=== PATIENT | female | born 1955 | race American Indian/Alaskan Native ===

== ENCOUNTER 2018-06-19 12:15 | Emergency (ER) | payer MEDICAID, OTHER ==
--- NOTE | 2018-06-19 12:29 | Emergency Department Report ---
Blank Doc - Documentation Documentation: 63 yo with a hx of stroke in January presents today s/p fall last night while walking to the bathroom, walks with cane no incident prior to fall, no loc witnessed by her sister who is here with her no f/u since January due to no medicaid yet Speaking clearly, mild abrasion to right eyebrow Main side ED evaluate
[2018-06-19] MEDS ORDERED: ULTRAM PO ONE (13:19)
--- NOTE | 2018-06-19 13:29 | Emergency Department Report ---
ED Fall HPI - General Chief Complaint: Fall Stated Complaint: RT LEG/ARM PAIN Time Seen by Provider: 06/19/18 12:23 Source: family Mode of arrival: Wheelchair - History of Present Illness Initial Comments: 63-year-old female with baseline right-sided weakness secondary to CVA presents to the ED following a trip and fall. The patient woke up in the middle of the night and attempted to ambulate to the bathroom with her cane and she fell down. Patient has abrasion into the right side of face, complaining of pain to the right hand. Patient also reports pain to right lower leg that has been ongoing for one month. PCP: none Complaint: fall -: Last night Fall From: standing Place Fall Occurred: home Symptoms Prior to Fall: none Location: head Location - Extremities: Right: Hand Severity: moderate Context: tripped/slipped - Related Data Previous Rx's Medication Instructions Recorded Last Taken Type AtorvaSTATin [Lipitor] 80 mg PO QHS #30 tablet 03/17/18 Unknown Rx Nicotine [Habitrol] 21 mg TD QDAY #30 patch 03/17/18 Unknown Rx metFORMIN [Glucophage] 500 mg PO BIDDIAB #30 tablet 03/17/18 Unknown Rx Amlodipine Besylate [Norvasc] 5 mg PO QDAY #30 tablet 06/19/18 Unknown Rx Methocarbamol [Robaxin-750] 750 mg PO Q6HR PRN #20 tablet 06/19/18 Unknown Rx Allergies Allergy/AdvReac Type Severity Reaction Status Date / Time No Known Allergies Allergy Verified 02/16/18 15:06 ED Review of Systems ROS: Stated complaint: RT LEG/ARM PAIN Other details as noted in HPI Comment: All other systems reviewed and negative Musculoskeletal: as per HPI ED Past Medical Hx - Past Medical History Previous Medical History?: Yes Hx Hypertension: Yes Hx CVA: Yes Hx Congestive Heart Failure: No Hx Diabetes: Yes Hx Deep Vein Thrombosis: No Hx Pulmonary Embolism: No Hx GERD: No Hx Liver Disease: No Hx Renal Disease: No Hx Sickle Cell Disease: No Hx Arthritis: No Hx Headaches / Migraines: No Hx Seizures: No Hx Kidney Stones: No Hx Psychiatric Treatment: No Hx Asthma: No Hx COPD: No Hx Tuberculosis: No Hx Dementia: No - Surgical History Past Surgical History?: No Hx Pacemaker: No - Social History Smoking Status: Former Smoker Substance Use Type: None - Medications Home Medications: Home Medications Medication Instructions Recorded Confirmed Last Taken Type AtorvaSTATin [Lipitor] 80 mg PO QHS #30 tablet 03/17/18 Unknown Rx Nicotine [Habitrol] 21 mg TD QDAY #30 patch 03/17/18 Unknown Rx metFORMIN [Glucophage] 500 mg PO BIDDIAB #30 tablet 03/17/18 Unknown Rx Amlodipine Besylate [Norvasc] 5 mg PO QDAY #30 tablet 06/19/18 Unknown Rx Methocarbamol [Robaxin-750] 750 mg PO Q6HR PRN #20 tablet 06/19/18 Unknown Rx ED Physical Exam - General Limitations: No Limitations General appearance: alert, in no apparent distress - Head Head exam: Present: other (abrasion to right face) - Eye Eye exam: Present: normal appearance - ENT ENT exam: Present: mucous membranes moist - Neck Neck exam: Present: normal inspection. Absent: tenderness - Respiratory Respiratory exam: Present: normal lung sounds bilaterally. Absent: respiratory distress - Cardiovascular Cardiovascular Exam: Present: regular rate, normal rhythm - GI/Abdominal GI/Abdominal exam: Present: soft. Absent: distended, tenderness - Extremities Exam Extremities exam: Present: other (no deformities noted; tenderness to right hand, right lower leg, no swelling noted) - Neurological Exam Neurological exam: Present: alert, other (baseline right-sided weakness) - Psychiatric Psychiatric exam: Present: normal affect, normal mood - Skin Skin exam: Present: warm, dry, intact, normal color ED Course Vital Signs 06/19/18 12:23 Temperature 97.9 F Pulse Rate 73 Respiratory 18 Rate Blood Pressure 180/102 O2 Sat by Pulse 96 Oximetry ED Medical Decision Making - Radiology Data Radiology results: report reviewed, image reviewed - Medical Decision Making - CT Head negative - XR hand negative - venous doppler negative - pt hypertensive, will start on Norvasc 5 mg - outpt follow-up given - return precautions given - Differential Diagnosis intracranial injury, fracture, sprain, DVT, neuropathy Critical care attestation.: If time is entered above; I have spent that time in minutes in the direct care of this critically ill patient, excluding procedure time. ED Disposition Clinical Impression: Head injury, acute, Sprain of right hand, Pain of right lower extremity, Hypertension Disposition: TO HOME OR SELFCARE Is pt being admited?: No Condition: Stable Instructions: Chronic Pain (ED), Minor Head Injury (ED), Hand Sprain (ED), Peripheral Neuropathy (ED), Hypertension (ED) Prescriptions: Amlodipine Besylate [Norvasc] 5 mg PO QDAY #30 tablet Methocarbamol [Robaxin-750] 750 mg PO Q6HR PRN #20 tablet PRN Reason: Spasms [facility] [Primary Care Provider[facility] - 3-5 Days OWEN EDEN MD [Staff Physician] - 3-5 Days [facility] [Outside] - 3-5 Days [facility] [Outside] - 3-5 Days Time of Disposition: 15:06
--- NOTE | 2018-06-19 14:02 | Cat Scan Report ---
PROCEDURE: CT HEAD/BRAIN WO CON TECHNIQUE: A noncontrast CT of the head was performed. HISTORY: Fall COMPARISON: None FINDINGS: There is an interval but nonacute left frontal parietal infarct. There is no acute intracranial hemorrhage. There is no brain edema, mass effect or midline shift. Ventricular size is appropriate for brain volume. There is no abnormal extra-axial fluid collections. There is no skull fracture seen. The visualized paranasal sinuses are clear. IMPRESSION: Interval development of encephalomalacia in the left frontoparietal region, consistent wi th interval infarct. There is no acute intracranial abnormality seen. This document is electronically signed by Toshia Rivera MD., June 19 2018 02:00:34 PM ET
--- NOTE | 2018-06-19 14:48 | Vascular Lab Report ---
PROCEDURE: VL VENOUS DUPLEX LE RT TECHNIQUE: Grayscale, color flow and spectral waveform images were obtained of right lower extremity . HISTORY: fall, pain COMPARISON: None FINDINGS: There is no deep venous thrombosis seen in the right lower extremity. Flow is demonstrated by color flow and spectral waveform imaging. There is appropriate wall compression and augmentation. There is also no DVT seen in visualized proximal left lower extremity. IMPRESSION: There is no evidence for DVT in right lower extremity. This document is electronically signed by Toshia Rivera MD., June 19 2018 02:46:18 PM ET
--- NOTE | 2018-06-19 14:59 | XRay Report ---
PROCEDURE: XR HAND 3+V RT TECHNIQUE: 3 views of the right hand. HISTORY: pain COMPARISON: None FINDINGS: There is no acute fracture seen. There is no dislocation seen. There is no focal osseous lesion identified. Bones are osteopenic. IMPRESSION: There is no acute abnormality identified. This document is electronically signed by oTshia Rivera MD., June 19 2018 02:57:19 PM ET
[2018-06-19] MEDS ORDERED: TORADOL ONE (15:04)
[2018-06-19] MEDS ORDERED: TORADOL IM ONE (15:05)
[2018-06-19 15:08] VITALS: BP 172/80
== END 2018-06-19 15:23 | disposition home or self-care (01) ==
LOC: ED 12:15
DX: S63.91XA Sprain of unspecified part of right wrist and hand, initial encounter (principal); S00.91XA Abrasion of unspecified part of head, initial encounter; M79.661 Pain in right lower leg; I10 Essential (primary) hypertension; E11.9 Type 2 diabetes mellitus without complications; Z87.891 Personal history of nicotine dependence; W01.198A Fall on same level from slipping, tripping and stumbling with subsequent striking against other object, initial encounter; Y93.89 Activity, other specified; Y92.091 Bathroom in other non-institutional residence as the place of occurrence of the external cause; Y99.8 Other external cause status
CPT/HCPCS: 70450; 73130; 82962; 93971; 96372; 99284; J1885

== ENCOUNTER 2018-07-29 10:00 | Outpatient (CLI) | payer MEDICAID ==
[2018-07-29 10:58] LABS: Hematocrit 44.1 % (30.3-42.9); Hemoglobin 14.8 gm/dl (10.1-14.3); Mean Corpuscular HGB Conc 34 % (30-34); Mean Corpuscular Volume 90 fl (79-97); Platelet Count 320 K/mm3 (140-440); Red Blood Count 4.89 M/mm3 (3.65-5.03); Red Cell Distribution Width 15.4 % (13.2-15.2)
[2018-07-29 11:02] LABS: Alanine Aminotransferase 21 units/L (7-56); Albumin 4.6 g/dL (3.9-5); BUN/Creatinine Ratio 15; Blood Urea Nitrogen 9 mg/dL (7-17); Chol/HDL Ratio 3.46 %; HDL Cholesterol 45 mg/dL (40-59); Hemolysis Index 11; LDL Cholesterol,Direct 110 mg/dL (50-130)
[2018-08-02 14:29] LABS: Vitamin D, 25-OH, D2 <4 ng/mL
== END 2018-07-29 10:01 | disposition home or self-care (01) ==
LOC: LAB 10:00
PROVIDERS: ATTEND Internal Medicine
DX: E11.9 Type 2 diabetes mellitus without complications (principal); E78.5 Hyperlipidemia, unspecified; I10 Essential (primary) hypertension; I69.30 Unspecified sequelae of cerebral infarction; E78.00 Pure hypercholesterolemia, unspecified
CPT/HCPCS: 36415; 80053; 80061; 82306; 82607; 83036; 84443; 85027

== ENCOUNTER 2018-10-20 15:06 | Outpatient (CLI) | payer MEDICAID ==
[2018-10-20 15:28] LABS: Bilirubin,Urine NEG (Negative); Blood,Urine SM (Negative); Color,Urine Yellow (Yellow); Mucus,Urine FEW /HPF; Protein,Urine <15 mg/dL mg/dL (Negative); Urobilinogen,Urine < 2.0 mg/dL (<2.0)
== END 2018-10-20 15:07 | disposition home or self-care (01) ==
LOC: LAB 15:06
PROVIDERS: ATTEND Internal Medicine
DX: N39.0 Urinary tract infection, site not specified (principal); E11.9 Type 2 diabetes mellitus without complications; E78.00 Pure hypercholesterolemia, unspecified; I10 Essential (primary) hypertension
CPT/HCPCS: 81001; 87086

== ENCOUNTER 2019-02-10 08:54 | Inpatient (IN) | payer MEDICAID, OTHER ==
[2019-02-10 09:59] LABS: Basophils # (Auto) 0.1 K/mm3 (0.0-0.1); Eosinophils # (Auto) 0.1 K/mm3 (0.0-0.4); Eosinophils % (Auto) 2.1 % (0.0-4.3); Hematocrit 39.3 % (30.3-42.9); Hemoglobin 13.5 gm/dl (10.1-14.3); Lymphocytes # (Auto) 2.3 K/mm3 (1.2-5.4); Lymphocytes % (Auto) 36.7 % (13.4-35.0); Mean Corpuscular HGB Conc 34 % (30-34); Mean Corpuscular Volume 92 fl (79-97); Monocytes # (Auto) 0.5 K/mm3 (0.0-0.8); Platelet Count 295 K/mm3 (140-440); Red Blood Count 4.28 M/mm3 (3.65-5.03); Red Cell Distribution Width 13.7 % (13.2-15.2)
[2019-02-10 10:08] LABS: INR 0.91 (0.87-1.13)
[2019-02-10 10:09] LABS: Partial Thromboplastin Time 25.1 Sec. (24.2-36.6); Thrombin Time 18.7 Sec. (15.1-19.6)
[2019-02-10 10:10] LABS: BUN/Creatinine Ratio 19; Blood Urea Nitrogen 13 mg/dL (7-17); Calcium 9.6 mg/dL (8.4-10.2); Hemolysis Index 5
--- NOTE | 2019-02-10 10:25 | Emergency Department Report ---
<JUAN CAAL - Last Filed: 02/10/19 13:05> ED Neuro Deficit HPI - General Chief Complaint: Neuro Symptoms/Deficit Stated Complaint: POSS STROKE SX Time Seen by Provider: 02/10/19 09:53 Source: family Mode of arrival: Wheelchair Limitations: Other - History of Present Illness Initial Comments: 63-year-old -Surinamese female patient with history of CVA, hypertension, diabetes, and right sided lasted hemiplegia with possible stroke/seizure last seizure occurring on Wednesday. Patient's is the historian. He states that on Wednesday as the patient was sitting, her eyes suddenly rolled into the back of her head and she unresponsive for about 15 seconds and clenched his hand very hard with her left hand. He states when she became conscious again she did not recall the event that had just occurred. Patient states he then called EMS but the patient refused to go to the hospital. He states since the event on Wed, the patient's memory has been even further impaired from her baseline. He states she can no longer remember her name or other people who she knew before Wednesday. Patient does have memory and speech deficits at baseline. Patient's denies any previous history of seizures or recent head injuries/falls. The patient denies any headache, shortness of breath, chest pain -: Sudden - Related Data Home Medications: Previous Rx's Medication Instructions Recorded Last Taken Type AtorvaSTATin [Lipitor] 80 mg PO QHS #30 tablet 03/17/18 Unknown Rx Nicotine [Habitrol] 21 mg TD QDAY #30 patch 03/17/18 Unknown Rx metFORMIN [Glucophage] 500 mg PO BIDDIAB #30 tablet 03/17/18 Unknown Rx Amlodipine Besylate [Norvasc] 5 mg PO QDAY #30 tablet 06/19/18 Unknown Rx Methocarbamol [Robaxin-750] 750 mg PO Q6HR PRN #20 tablet 06/19/18 Unknown Rx Allergies/Adverse Reactions: Allergies Allergy/AdvReac Type Severity Reaction Status Date / Time No Known Allergies Allergy Verified 02/10/19 08:55 ED Review of Systems Comment: patient appears to be an unreliable historian Respiratory: denies: shortness of breath Cardiovascular: denies: chest pain Skin: denies: rash Neurological: denies: headache ED Past Medical Hx - Past Medical History Hx Hypertension: Yes Hx CVA: Yes Hx Congestive Heart Failure: No Hx Diabetes: Yes Hx Deep Vein Thrombosis: No Hx Pulmonary Embolism: No Hx GERD: No Hx Liver Disease: No Hx Renal Disease: No Hx Sickle Cell Disease: No Hx Arthritis: No Hx Headaches / Migraines: No Hx Seizures: No Hx Kidney Stones: No Hx Psychiatric Treatment: No Hx Asthma: No Hx COPD: No Hx Tuberculosis: No Hx Dementia: No - Surgical History Hx Pacemaker: No - Social History Smoking Status: Former Smoker Substance Use Type: None - Medications Home Medications: Home Medications Medication Instructions Recorded Confirmed Last Taken Type AtorvaSTATin [Lipitor] 80 mg PO QHS #30 tablet 03/17/18 Unknown Rx Nicotine [Habitrol] 21 mg TD QDAY #30 patch 03/17/18 Unknown Rx metFORMIN [Glucophage] 500 mg PO BIDDIAB #30 tablet 03/17/18 Unknown Rx Amlodipine Besylate [Norvasc] 5 mg PO QDAY #30 tablet 06/19/18 Unknown Rx Methocarbamol [Robaxin-750] 750 mg PO Q6HR PRN #20 tablet 06/19/18 Unknown Rx ED Neuro Physical Exam - General Limitations: Other General appearance: alert, in no apparent distress Suspected Stroke: No - Head Head exam: Present: atraumatic, normocephalic - Eye Eye exam: Present: normal appearance, PERRL. Absent: scleral icterus - ENT ENT exam: Present: normal orophraynx - Neck Neck exam: Present: normal inspection. Absent: tenderness, lymphadenopathy - Respiratory Respiratory exam: Present: normal lung sounds bilaterally. Absent: respiratory distress, chest wall tenderness - Cardiovascular Cardiovascular Exam: Present: regular rate, normal rhythm, normal heart sounds - GI/Abdominal GI/Abdominal exam: Present: soft, normal bowel sounds. Absent: distended, tenderness, guarding, rebound, rigid - Rectal Rectal exam: Present: deferred - Extremities Exam Extremities exam: Present: other. Absent: tenderness, pedal edema, joint swelling - Neurological Exam Neurological exam: Present: alert, CN II-XII intact, other (normal strength noted bilaterally in lower extremities and in left upper extremity. Permanent r ight upper extremity neuro deficit noted. Patient able to follow commands without difficulty. Patient is oriented to person, place, or time). Absent: oriented X3 - Psychiatric Psychiatric exam: Present: normal affect - Skin Skin exam: Present: warm, dry, intact, normal color. Absent: rash - Lab Data Result diagrams: 11/22/19 09:30 02/10/19 09:30 - Radiology Data Radiology results: report reviewed NONENHANCED CT SCAN OF THE HEAD: INDICATION / CLINICAL INFORMATION: 63 years Female; neuro deficits <6hrs or sx present upon awakening. TECHNIQUE: Routine CT head without contrast. All CT scans at this location are performed using CT dose reduction for ALARA by means of automated exposure control. COMPARISON: CT scan of the head from 06/19/2018 FINDINGS: BRAIN / INTRACRANIAL CONTENTS: No acute hemorrhage midline shift or hydrocephalus. No acute/subacute territorial infarction Encephalomalacia is seen involving left posterior frontal and parietal lobes and to a lesser degree left superior frontal gyrus with compensatory enlargement of left atrium of the left lateral ventricle. Wallerian degeneration is seen along the left corticospinal tract. No significant white matter abnormality. Mild cortical involution is seen. CT findings remain unchanged. CRANIOCERVICAL JUNCTION: No significant abnormality. ORBITS: No significant abnormality of visualized orbits. SINUSES / MASTOIDS: No significant abnormality of the visualized paranasal sinuses or mastoid air cells. ADDITIONAL FINDINGS: None. IMPRESSION: CT findings remain unchanged I do not see an acute territorial infarction or acute parenchymal lesion. CT scan was interpreted attendance 10:16 AM. Discussed findings with the ER physician. - Medical Decision Making 63-year-old -[place] female patient here today with suspected TIA/seizure occurring Wednesday. Patient has history of stroke with permanent right-sided deficits in speech and memory deficits. Is not oriented to person, place, or time. states she knows his name, but no longer knows her own name or other people that she knew previously before Wednesday. No known exam and patient able to follow commands. Labs are without acute findings. CT head shows no new changes. Ammonia level is normal. Patient to be admitted for f urther workup and evaluation of altered mental status. Vitals are stable ED Disposition Clinical Impression: CVA (cerebral vascular accident) Altered mental status Qualifiers: Altered mental status type: disorientation Qualified Code(s): R41.0 - Disorientation, unspecified Disposition: - OP ADMIT IP TO THIS HOSP Is pt being admited?: Yes Condition: Stable <TOM DUQUE - Last Filed: 02/10/19 13:26> ED Review of Systems ROS: Stated complaint: POSS STROKE SX Other details as noted in HPI ED Course Vital Signs 02/10/19 09:03 Temperature 98.2 F Pulse Rate 75 Respiratory 18 Rate Blood Pressure 149/94 O2 Sat by Pulse 100 Oximetry - Lab Data Result diagrams: 02/10/19 09:30 02/10/19 09:30 Lab Results 02/10/19 02/10/19 02/10/19 Range/Units 09:30 09:30 09:30 WBC 6.2 (4.5-11.0) K/mm3 RBC 4.28 (3.65-5.03) M/mm3 Hgb 13.5 (10.1-14.3) gm/dl Hct 39.3 (30.3-42.9) % MCV 92 (79-97) fl MCH 31 (28-32) pg MCHC 34 (30-34) % RDW 13.7 (13.2-15.2) % Plt Count 295 (140-440) K/mm3 Lymph % (Auto) 36.7 H (13.4-35.0) % [place] % (Auto) 8.0 H (0.0-7.3) % Eos % (Auto) 2.1 (0.0-4.3) % Baso % (Auto) 1.0 (0.0-1.8) % Lymph # 2.3 (1.2-5.4) K/mm3 [place] # 0.5 (0.0-0.8) K/mm3 Eos # 0.1 (0.0-0.4) K/mm3 Baso # 0.1 (0.0-0.1) K/mm3 Seg Neutrophils % 52.2 (40.0-70.0) % Seg Neutrophils # 3.2 (1.8-7.7) K/mm3 PT 12.2 (12.2-14.9) Sec. INR 0.91 (0.87-1.13) APTT 25.1 (24.2-36.6) Sec. Thrombin Time 18.7 (15.1-19.6) Sec. Sodium 141 (137-145) mmol/L Potassium 3.6 (3.6-5.0) mmol/L Chloride 103.9 (98-107) mmol/L Carbon Dioxide 22 (22-30) mmol/L Anion Gap 19 mmol/L BUN 13 (7-17) mg/dL Creatinine 0.7 (0.7-1.2) mg/dL Estimated GFR > 60 ml/min BUN/Creatinine Ratio 19 % Glucose 116 H (65-100) mg/dL Calcium 9.6 (8.4-10.2) mg/dL Magnesium (1.7-2.3) mg/dL Ammonia (25-60) umol/L Troponin T < 0.010 (0.00-0.029) ng/mL 02/10/19 02/10/19 Range/Units 09:30 10:52 WBC (4.5-11.0) K/mm3 RBC (3.65-5.03) M/mm3 Hgb (10.1-14.3) gm/dl Hct (30.3-42.9) % MCV (79-97) fl MCH (28-32) pg MCHC (30-34) % RDW (13.2-15.2) % Plt Count (140-440) K/mm3 Lymph % (Auto) (13.4-35.0) % [place] % (Auto) (0.0-7.3) % Eos % (Auto) (0.0-4.3) % Baso % (Auto) (0.0-1.8) % Lymph # (1.2-5.4) K/mm3 [place] # (0.0-0.8) K/mm3 Eos # (0.0-0.4) K/mm3 Baso # (0.0-0.1) K/mm3 Seg Neutrophils % (40.0-70.0) % Seg Neutrophils # (1.8-7.7) K/mm3 PT (12.2-14.9) Sec. INR (0.87-1.13) APTT (24.2-36.6) Sec. Thrombin Time (15.1-19.6) Sec. Sodium (137-145) mmol/L Potassium (3.6-5.0) mmol/L Chloride (98-107) mmol/L Carbon Dioxide (22-30) mmol/L Anion Gap mmol/L BUN (7-17) mg/dL Creatinine (0.7-1.2) mg/dL Estimated GFR ml/min BUN/Creatinine Ratio % Glucose (65-100) mg/dL Calcium (8.4-10.2) mg/dL Magnesium 2.00 (1.7-2.3) mg/dL Ammonia 30.0 (25-60) umol/L Troponin T (0.00-0.029) ng/mL - Medical Decision Making I evaluated Miss Owens. I spoke extensively with and family member at the bedside. Differential diagnosis includes seizure with post ictal state versus acute CVA versus intracranial mass. will need further treatment and evaluation on inpatient service. Critical care attestation.: If time is entered above; I have spent that time in minutes in the direct care of this critically ill patient, excluding procedure time. ED Disposition Is pt being admited?: Yes Does the pt Need Aspirin: No
--- NOTE | 2019-02-10 11:22 | Cat Scan Report ---
NONENHANCED CT SCAN OF THE HEAD: INDICATION / CLINICAL INFORMATION: 63 years Female; neuro deficits <6hrs or sx present upon awakening. TECHNIQUE: Routine CT head without contrast. All CT scans at this location are performed using CT dos e reduction for ALARA by means of automated exposure control. COMPARISON: CT scan of the head from 06/19/2018 FINDINGS: BRAIN / INTRACRANIAL CONTENTS: No acute hemorrhage midline shift or hydrocephalus. No acute/subacute territorial infarction Encephal omalacia is seen involving left posterior frontal and parietal lobes and to a lesser degree left supe rior frontal gyrus with compensatory enlargement of left atrium of the left lateral ventricle. Blancas janie degeneration is seen along the left corticospinal tract. No significant white matter abnormality. Mild cortical involution is seen. CT findings remain unchanged. CRANIOCERVICAL JUNCTION: No significant abnormality. ORBITS: No significant abnormality of visualized orbits. SINUSES / MASTOIDS: No significant abnormality of the visualized paranasal sinuses or mastoid air alexsander ls. ADDITIONAL FINDINGS: None. IMPRESSION: CT findings remain unchanged I do not see an acute territorial infarction or acute parenchymal lesion. CT scan was interpreted attendance 10:16 AM. Discussed findings with the ER physician. Signer Name: Alpesh Mas MD Signed: 02/10/2019 11:18 AM Workstation Name: [employer]
--- NOTE | 2019-02-10 12:44 | XRay Report ---
CHEST 1 VIEW 02/10/2019 12:13 PM INDICATION / CLINICAL INFORMATION: r/o infection. COMPARISON: None available. FINDINGS: SUPPORT DEVICES: None. HEART / MEDIASTINUM: No significant abnormality. LUNGS / PLEURA: No significant pulmonary or pleural abnormality. No pneumothorax. ADDITIONAL FINDINGS: No significant additional findings. IMPRESSION: 1. No acute findings. Signer Name: Giovanny Salguero MD Signed: 02/10/2019 12:39 PM Workstation Name: [id number]
[2019-02-10 14:43] LABS: Bacteria,Urine 1+ /HPF (Negative); Bilirubin,Urine NEG (Negative); Blood,Urine NEG (Negative); Color,Urine Yellow (Yellow); Mucus,Urine FEW /HPF; Protein,Urine <15 mg/dL mg/dL (Negative); Urobilinogen,Urine < 2.0 mg/dL (<2.0)
[2019-02-10] MEDS ORDERED: ACETAMINOPHEN W/CODEINE 300-30 MG TAB PO PRN (22:05)
--- NOTE | 2019-02-10 22:05 | History and Physical Report ---
History of Present Illness Date of examination: 02/10/19 Date of admission: 02/10/19 12:33 Chief complaint: Acute seizures 5 days ago Acute loss of Memory History of present illness: 63-year-old -[place] female patient with history of CVA, hypertension, diabetes, and right sided lasted hemiplegia with possible stroke/seizure last seizure occurring on Wednesday. Patient's is the historian. He states that on Wednesday as the patient was sitting, her eyes suddenly rolled into the back of her head and she unresponsive for about 15 seconds and clenched his hand very hard with her left hand. He states when she became conscious again she did not recall the event that had just occurred. Patient states he then called EMS but the patient refused to go to the hospital. He states since the event on Wednesday, the patient's memory has been even further impaired from her baseline. He states she can no longer remember her name or other people who she knew before Wednesday. Patient does have memory and speech deficits at baseline. Patient's denies any previous history of seizures or recent head injuries/falls. The patient denies any headache, shortness of breath, chest pain. New onset of seizures and more memory loss. - Past Medical History Hypertension: Yes CVA: Yes Diabetes: Yes Surgical History No Social History Smoking Status: Former Smoker Substance Use Type: None Family History Htn Medications Home Medications: Home Medications Medication Instructions Recorded Confirmed Last Taken Type AtorvaSTATin [Lipitor] 80 mg PO QHS #30 tablet 03/17/18 Unknown Rx Nicotine [Habitrol] 21 mg TD QDAY #30 patch 03/17/18 Unknown Rx metFORMIN [Glucophage] 500 mg PO BIDDIAB #30 tablet 03/17/18 Unknown Rx Amlodipine Besylate [Norvasc] 5 mg PO QDAY #30 tablet 06/19/18 Unknown Rx Methocarbamol [Robaxin-750] 750 mg PO Q6HR PRN #20 tablet 06/19/18 Unknown Rx Review of Systems Comment: patient appears to be an unreliable historian Respiratory: denies: shortness of breath Cardiovascular: denies: chest pain Skin: denies: rash Neurological: denies: headache Medications and Allergies Allergies Allergy/AdvReac Type Severity Reaction Status Date / Time No Known Allergies Allergy Verified 02/10/19 08:55 Home Medications Medication Instructions Recorded Confirmed Last Taken Type AtorvaSTATin [Lipitor] 80 mg PO QHS #30 tablet 03/17/18 02/10/19 Unknown Rx metFORMIN [Glucophage] 500 mg PO BIDDIAB #30 tablet 03/17/18 02/10/19 Unknown Rx Amlodipine Besylate [Norvasc] 5 mg PO QDAY #30 tablet 06/19/18 02/10/19 Unknown Rx Methocarbamol [Robaxin-750] 750 mg PO Q6HR PRN #20 tablet 06/19/18 02/10/19 Unknown Rx Acetaminophen/Codeine [Tylenol 1 tab PO TID PRN 02/10/19 02/10/19 Unknown History /Codeine # 3 tab] Aspirin [Aspirin BABY CHEW TAB] 81 mg PO QDAY 02/10/19 02/10/19 Unknown History Losartan [Cozaar] 50 mg PO QDAY 02/10/19 02/10/19 Unknown History Exam - Constitutional Vitals: Temp Pulse Resp BP Pulse Ox 97.9 F 84 18 108/70 97 02/10/19 19:35 02/10/19 20:25 02/10/19 19:35 02/10/19 19:35 02/10/19 19:35 General appearance: Present: no acute distress, well-nourished - EENT Eyes: Present: PERRL ENT: hearing intact, clear oral mucosa - Neck Neck: Present: supple, normal ROM - Respiratory Respiratory effort: normal Respiratory: bilateral: CTA - Cardiovascular Heart rate: 78 Rhythm: regular Heart Sounds: Present: S1 & S2. Absent: rub, click - Extremities Extremities: no ischemia, pulses intact, pulses symmetrical, No edema Peripheral Pulses: within normal limits - Abdominal General gastrointestinal: Present: soft, non-tender, non-distended, normal bowel sounds Female genitourinary: Present: normal - Rectal Rectal Exam: deferred - Integumentary Integumentary: Present: clear, warm, dry - Musculoskeletal Musculoskeletal: right sided weakness - Psychiatric Psychiatric: appropriate mood/affect, intact judgment & insight - Neurologic Neurologic: CNII-XII intact, moves all extremities - Allied Health Allied health notes reviewed: nursing, case management Results - Labs CBC & Chem 7: 02/10/19 09:30 02/10/19 09:30 Labs: Laboratory Last Values WBC 6.2 K/mm3 (4.5-11.0) 02/10/19 09:30 RBC 4.28 M/mm3 (3.65-5.03) 02/10/19 09:30 Hgb 13.5 gm/dl (10.1-14.3) 02/10/19 09:30 Hct 39.3 % (30.3-42.9) 02/10/19 09:30 MCV 92 fl (79-97) 02/10/19 09:30 MCH 31 pg (28-32) 02/10/19 09:30 MCHC 34 % (30-34) 02/10/19 09:30 RDW 13.7 % (13.2-15.2) 02/10/19 09:30 Plt Count 295 K/mm3 (140-440) 02/10/19 09:30 Lymph % (Auto) 36.7 % (13.4-35.0) H 02/10/19 09:30 [place] % (Auto) 8.0 % (0.0-7.3) H 02/10/19 09:30 Eos % (Auto) 2.1 % (0.0-4.3) 02/10/19 09:30 Baso % (Auto) 1.0 % (0.0-1.8) 02/10/19 09:30 Lymph # 2.3 K/mm3 (1.2-5.4) 02/10/19 09:30 [place] # 0.5 K/mm3 (0.0-0.8) 02/10/19 09:30 Eos # 0.1 K/mm3 (0.0-0.4) 02/10/19 09:30 Baso # 0.1 K/mm3 (0.0-0.1) 02/10/19 09:30 Seg Neutrophils % 52.2 % (40.0-70.0) 02/10/19 09:30 Seg Neutrophils # 3.2 K/mm3 (1.8-7.7) 02/10/19 09:30 PT 12.2 Sec. (12.2-14.9) 02/10/19 09:30 INR 0.91 (0.87-1.13) 02/10/19 09:30 APTT 25.1 Sec. (24.2-36.6) 02/10/19 09:30 Thrombin Time 18.7 Sec. (15.1-19.6) 02/10/19 09:30 Sodium 141 mmol/L (137-145) 02/10/19 09:30 Potassium 3.6 mmol/L (3.6-5.0) 02/10/19 09:30 Chloride 103.9 mmol/L (98-107) 02/10/19 09:30 Carbon Dioxide 22 mmol/L (22-30) 02/10/19 09:30 Anion Gap 19 mmol/L 02/10/19 09:30 BUN 13 mg/dL (7-17) 02/10/19 09:30 Creatinine 0.7 mg/dL (0.7-1.2) 02/10/19 09:30 Estimated GFR > 60 ml/min 02/10/19 09:30 BUN/Creatinine Ratio 19 % 02/10/19 09:30 Glucose 116 mg/dL (65-100) H 02/10/19 09:30 POC Glucose 133 (70-105) H 02/10/19 20:54 Calcium 9.6 mg/dL (8.4-10.2) 02/10/19 09:30 Magnesium 2.00 mg/dL (1.7-2.3) 02/10/19 09:30 Ammonia 30.0 umol/L (25-60) 02/10/19 10:52 Troponin T < 0.010 ng/mL (0.00-0.029) 02/10/19 09:30 Urine Color Yellow (Yellow) 02/10/19 12:59 Urine Turbidity Slightly-cloudy (Clear) 02/10/19 12:59 Urine pH 5.0 (5.0-7.0) 02/10/19 12:59 Ur Specific [place] 1.016 (1.003-1.030) 02/10/19 12:59 Urine Protein <15 mg/dl mg/dL (Negative) 02/10/19 12:59 Urine Glucose (UA) Neg mg/dL (Negative) 02/10/19 12:59 Urine Ketones Neg mg/dL (Negative) 02/10/19 12:59 Urine Blood Neg (Negative) 02/10/19 12:59 Urine Nitrite Neg (Negative) 02/10/19 12:59 Urine Bilirubin Neg (Negative) 02/10/19 12:59 Urine Urobilinogen < 2.0 mg/dL (<2.0) 02/10/19 12:59 Ur Leukocyte Esterase Neg (Negative) 02/10/19 12:59 Urine WBC (Auto) 2.0 /HPF (0.0-6.0) 02/10/19 12:59 Urine RBC (Auto) 1.0 /HPF (0.0-6.0) 02/10/19 12:59 U Epithel Cells (Auto) 7.0 /HPF (0-13.0) 02/10/19 12:59 Urine Bacteria (Auto) 1+ /HPF (Negative) 02/10/19 12:59 Urine Mucus Few /HPF 02/10/19 12:59 - Imaging and Cardiology EKG: report reviewed (Sinus Bradycardia 52/min) CT Scan - head: report reviewed (CT Head--NAF) Assessment and Plan Advance Directives: Yes (Full code) VTE prophylaxis?: Chemical Plan of care discussed with patient/family: Yes - Patient Problems (1) CVA (cerebral vascular accident) Current Visit: Yes Status: Acute Qualifiers: CVA mechanism: unspecified Qualified Code(s): I63.9 - Cerebral infarction, unspecified Plan to address problem: Possible Acute frontal stroke Because of loss of memory Stroke protocol Neuro consult (2) T2DM (type 2 diabetes mellitus) Current Visit: Yes Status: Chronic Qualifiers: Diabetes mellitus terminal manager insulin use: with terminal manager use Plan to address problem: Cont Home meds and coverage (3) HTN (hypertension) Current Visit: Yes Status: Chronic Qualifiers: Hypertension type: essential hypertension Qualified Code(s): I10 - Essential (primary) hypertension Plan to address problem: Cont antihypertensives (4) New onset seizure Current Visit: Yes Status: Acute Plan to address problem: on IV Keppra (5) DVT prophylaxis Current Visit: Yes Status: Acute Plan to address problem: On Heparin and GI prophylaxis
[2019-02-11 07:36] LABS: Chol/HDL Ratio 4.11 %
[2019-02-11] MEDS: INSULIN LISPRO 100 UNIT/ML SUB-Q SCH ×4 (09:32→22:27)
[2019-02-11] MEDS: LOSARTAN 50 MG TAB PO SCH (09:33)
[2019-02-11] MEDS: metFORMIN 500 MG TAB PO SCH ×2 (09:33→18:11)
[2019-02-11] MEDS: levETIRAcetam 750 MG in DEXTROSE 5% IN WATER 100 ML IV SCH ×3 (09:33→22:32)
[2019-02-11] MEDS: HEPARIN 5,000 UNIT/1 ML VIAL SUB-Q SCH ×2 (09:34→22:28)
[2019-02-11] MEDS: amLODIPine 5 MG TAB PO SCH (09:34)
[2019-02-11] MEDS: ASPIRIN 81 MG TAB CHEW PO SCH (09:34)
--- NOTE | 2019-02-11 12:34 | Vascular Lab Report ---
"DUPLEX DOPPLER ULTRASOUND CAROTID, BILATERAL INDICATION: stroke. COMPARISON: CTA neck from 02/08/2018. FINDINGS: RIGHT CAROTID: Mild calcified plaques are seen along the common carotid artery. CCA velocity: 53.7 cm/sec. ICA peak systolic velocity: 49.4 cm/sec. ICA/CCA PSV Ratio: 0.9. Right Vertebral Artery: Antegrade flow. LEFT CAROTID: Mild to slight plaques are seen along the common carotid artery. CCA velocity: 40.9 cm/sec. ICA peak systolic velocity: 59.3 cm/sec. ICA/CCA PSV Ratio: 1.4. Left Vertebral Artery: Antegrade flow. IMPRESSION: 1. Right Internal Carotid Artery: Less than 50% diameter stenosis. 2. Left Internal Carotid Artery: Less than 50% diameter stenosis. Velocity criteria are extrapolated from diameter data as defined by the Society of Radiologists in Ul trasound Consensus Conference, Radiology 2003; 229;340-346. Degree of || ICA PSV || Plaque || ICA/CCA Stenosis (%) || (cm/sec) || estimate (%) || PSV Ratio - Normal...............<125..............None.................<2.0 - <50....................<125..............<50....................<2.0 - 50-69................125-230.........>50....................2.0-4.0 - >70 but <100....>230..............>50....................>4.0 - Near...................High, low, .....visible................variable occlusion or none - Total...................None.............visible;................N/A occlusion no lumen Signer Name: Ryan Bingham MD Signed: 02/11/2019 12:29 PM Workstation Name: [email or web address]"
--- NOTE | 2019-02-11 12:47 | Progress Note ---
Assessment and Plan (1) CVA (cerebral vascular accident) Current Visit: Yes Status: Acute Qualifiers: CVA mechanism: unspecified Qualified Code(s): I63.9 - Cerebral infarction, unspecified Plan to address problem: Possible Acute frontal stroke Because of loss of memory Stroke protocol Neuro consult (2) T2DM (type 2 diabetes mellitus) Current Visit: Yes Status: Chronic Qualifiers: Diabetes mellitus long chain beamer insulin use: with long chain beamer use Plan to address problem: Cont Home meds and coverage (3) HTN (hypertension) Current Visit: Yes Status: Chronic Qualifiers: Hypertension type: essential hypertension Qualified Code(s): I10 - Essential (primary) hypertension Plan to address problem: Cont antihypertensives (4) New onset seizure Current Visit: Yes Status: Acute Plan to address problem: on IV Keppra (5) DVT prophylaxis Current Visit: Yes Status: Acute Plan to address problem: On Heparin and GI prophylaxis Subjective Date of service: 02/11/19 Objective - Constitutional Vitals: Vital Signs - 12hr 02/11/19 02/11/19 02/11/19 04:41 08:16 09:33 Temperature 98.0 F 97.4 F L Pulse Rate 59 L 60 64 Respiratory 18 18 Rate Blood Pressure 133/88 142/92 142/92 O2 Sat by Pulse 100 99 Oximetry 02/11/19 09:34 Temperature Pulse Rate 64 Respiratory Rate Blood Pressure 142/92 O2 Sat by Pulse Oximetry - Labs CBC & Chem 7: 02/10/19 09:30 02/10/19 09:30 Labs: Abnormal lab results 02/10/19 02/11/19 02/11/19 Range/Units 20:54 04:52 04:52 POC Glucose 133 H (70-105) Hemoglobin A1c 6.2 H (4-6) % HDL Cholesterol 35 L (40-59) mg/dL
--- NOTE | 2019-02-11 16:58 | Magnetic Resonance Report ---
MRI BRAIN WITHOUT CONTRAST INDICATION / CLINICAL INFORMATION: stroke. . Right-sided weakness. TECHNIQUE: Multiplanar, multisequence MR images of the brain were obtained. COMPARISON: Head CT 02/10/2019 and 06/19/2018. FINDINGS: BRAIN / INTRACRANIAL CONTENTS: A large area of encephalomalacia is observed involving much of the lef t frontal and parietal lobe secondary to remote left MCA infarction which occurred between 02/16/2018 and 06/19/2018. There is evidence of cortical laminar necrosis in the region of the infarction. A mor e remote small deep infarction is observed in the region of the head of the caudate nucleus on the ri ght. This was first identified on head CT dated 02/16/2018. No more recent areas of ischemia are identified. Diffusion weighted scans are negative with no indica tion of acute or subacute infarction. There is no mass effect. No evidence of recent intracranial hem orrhage is observed. Note is made of what appear to be dilated perivascular spaces in the right temporal lobe. Similar fin dings are seen in a bilateral gangliocapsular distribution. There is mild ex vacuo dilatation of the posterior body and atria of the left lateral ventricle. Dila tation of the cortical sulci of the left frontal and parietal operculum is observed. The brainstem an d cerebellum have an unremarkable appearance. CRANIOCERVICAL JUNCTION: No abnormalities are identified at the craniocervical junction. VASCULAR FLOW-VOIDS: Normal flow-voids are present within the major intracranial vessels. ORBITS: The orbits have an unremarkable appearance. SINUSES / MASTOIDS: There is no indication of inflammatory disease in the paranasal sinuses or mastoi d air cells. ADDITIONAL FINDINGS: None. IMPRESSION: 1. Evidence of remote left MCA infarction and remote small deep infarction in the right head of cauda te nucleus. 2. No acute intracranial abnormalities are identified. Signer Name: Bong Pérez MD Signed: 02/11/2019 4:54 PM Workstation Name: [email or web address]
[2019-02-12] MEDS: INSULIN LISPRO 100 UNIT/ML SUB-Q SCH ×2 (08:15→12:20)
[2019-02-12] MEDS: metFORMIN 500 MG TAB PO SCH (09:34)
[2019-02-12] MEDS: ASPIRIN 81 MG TAB CHEW PO SCH (09:34)
[2019-02-12] MEDS: amLODIPine 5 MG TAB PO SCH (09:34)
[2019-02-12] MEDS: LOSARTAN 50 MG TAB PO SCH (09:35)
[2019-02-12] MEDS: HEPARIN 5,000 UNIT/1 ML VIAL SUB-Q SCH (09:36)
[2019-02-12] MEDS: levETIRAcetam 750 MG in DEXTROSE 5% IN WATER 100 ML IV SCH (10:22)
[2019-02-12 12:35] VITALS: BP 122/77
--- NOTE | 2019-02-12 13:57 | Discharge Summary ---
Providers - Providers Date of Admission: 02/10/19 12:33 Date of discharge: 02/12/19 Attending physician: ABHIJIT GUERRERO 02/10/19 22:07 Consult to Physician [CONS] Routine Comment: Consulting Provider: DEMETRI HYMAN Physician Instructions: Reason For Exam: CVA 02/10/19 22:09 Occupational Therapy Evaluate and Treat [CONS] Routine Comment: Reason For Exam: Neuro deficits Physical Therapy Evaluation and Treat [CONS] Routine Comment: Reason For Exam: Neuro deficits Primary care physician: RESIDENTIAL FRAMING CARPENTER Hospitalization Condition: Stable Hospital course: Discharge diagnosis: /TIA - MRI negative for acute stroke /H/o CVA (cerebral vascular accident) with right sided hameparesis / T2DM (type 2 diabetes mellitus) -Cont Home meds and coverage / HTN (hypertension), Cont antihypertensives / New onset seizure, placed on Keppra, EEG and neurology f/u outpt / DVT prophylaxis, Placed On Heparin Disposition: DC/TX-06 HOME UNDER HOME HL[facility] Time spent for discharge: 34 minutes Core Measure Documentation - Palliative Care Palliative Care/ Comfort Measures: Not Applicable - Core Measures Any of the following diagnoses?: stroke - Stroke Discharge Requirements Statin for LDL = or >70 mg/dl on DC: Yes Anticoag for atrial fib/atrial flutter: Not Applicable Antithrombotic for ischemic stroke: Yes Exam - Constitutional Vitals: Temp Pulse Resp BP Pulse Ox 99.2 F 61 18 122/77 99 02/12/19 12:34 02/12/19 12:34 02/12/19 12:34 02/12/19 12:34 02/12/19 12:34 General appearance: Present: no acute distress, well-nourished - EENT Eyes: Present: PERRL ENT: hearing intact, clear oral mucosa - Neck Neck: Present: supple, normal ROM - Respiratory Respiratory effort: normal Respiratory: bilateral: CTA - Cardiovascular Heart Sounds: Present: S1 & S2. Absent: rub, click - Extremities Extremities: pulses symmetrical, No edema Peripheral Pulses: within normal limits - Abdominal General gastrointestinal: Present: soft, non-tender, non-distended, normal bowel sounds - Integumentary Integumentary: Present: clear, warm, dry - Musculoskeletal Musculoskeletal: right sided weakness - Psychiatric Psychiatric: appropriate mood/affect, intact judgment & insight - Neurologic Neurologic: CNII-XII intact, no gait normal Plan Activity: fall precautions, other Weight Bearing Status: Non-Weight Bearing Diet: low fat, low salt, diabetic Special Instructions: record daily BP diary, record blood sugar diary Additional Instructions: need EEG and outpt neurology f/u in one to two weeks Follow up with: PRIMARY CARE, [Primary Care Provider] - 7 Days DEMTERI HYMAN MD [Staff Physician] - 7 Days MEGHAN BARRIGA MD [Staff Physician] - 7 Days Prescriptions: levETIRAcetam [Keppra TAB] 750 mg PO BID #60 tablet
--- NOTE | 2019-02-13 22:18 | Emergency Department Report ---
- Assessment Assessment Interval: Baseline - Level of Consciousness 1a. Level of Consciousness: alert/keenly responsive - LOC Questions 1b. LOC Questions: answers no questions correctly - LOC Command 1c. LOC Commands: performs 1 task correctly - Best Gaze 2. Best Gaze: normal - Visual 3. Visual: no visual loss - Facial Palsy 4. Facial Palsy: minor paralysis - Motor Arm 5a. Motor Arm Left: some gravity effort 5b. Motor Arm Right: some gravity effort - Motor Leg 6a. Motor Leg Left: some gravity effort 6b. Motor Leg Right: some gravity effort - Limb Ataxia 7. Limb Ataxia: absent - Sensory 8. Sensory: mild/moderate sensory loss - Best Language 9. Best Language: mild/moderate aphasia - Dysarthria 10. Dysarthria: mild/moderate dysarthria - Extinction and Inattention 11. Extinction/Inattention: visual/tactile inattention - Scoring Total Score: 16 Stroke Severity: Moderate to Severe Stroke
== END 2019-02-12 15:42 | disposition home health service (06) | DRG 69 ==
LOC: ED 08:54 → 4A 12:33
PROVIDERS: ADMIT Internal Medicine; ATTEND Internal Medicine
DX: G45.9 Transient cerebral ischemic attack, unspecified (principal); I69.351 Hemiplegia and hemiparesis following cerebral infarction affecting right dominant side; E11.9 Type 2 diabetes mellitus without complications; I10 Essential (primary) hypertension; R56.9 Unspecified convulsions; Z82.49 Family history of ischemic heart disease and other diseases of the circulatory system; Z79.899 Other long term (current) drug therapy
CPT/HCPCS: 36415; 70450; 70551; 71045; 80048; 80061; 81001; 82140; 82962; 83036; 83735; 84484; 85025; 85610; 85670; 85730; 93005; 93010; 93306; 93880; G0378; A9270-GY; J1644; J1953

== ENCOUNTER 2019-04-06 09:47 | Outpatient (CLI) | payer MEDICAID ==
[2019-04-06 13:20] LABS: Bilirubin,Urine NEG (Negative); Blood,Urine SM (Negative); Color,Urine Yellow (Yellow); Mucus,Urine FEW /HPF; Protein,Urine <15 mg/dL mg/dL (Negative); Urobilinogen,Urine < 2.0 mg/dL (<2.0)
[2019-04-06 13:55] LABS: Chol/HDL Ratio 3.18 %
== END 2019-04-06 09:48 | disposition home or self-care (01) ==
LOC: LAB 09:47
PROVIDERS: ATTEND Internal Medicine
DX: E11.9 Type 2 diabetes mellitus without complications (principal); E78.5 Hyperlipidemia, unspecified; N39.0 Urinary tract infection, site not specified
CPT/HCPCS: 36415; 80061; 81001; 83036; 87086

== ENCOUNTER 2019-04-18 12:18 | Outpatient (CLI) | payer MEDICAID ==
--- NOTE | 2019-04-18 13:40 | Mammography Report ---
BILATERAL DIGITAL SCREENING MAMMOGRAM WITH CAD INDICATION: Routine screening mammography. TECHNIQUE: Digital bilateral 2D mammography was obtained in the craniocaudal and mediolateral obliq ue projections. This examination was interpreted with the benefit of Computer-Aided Detection soniai s. COMPARISON: 05/01/2014, 01/20/2012, 02/28/2010. FINDINGS: Breast Density: The breasts are heterogeneously dense, which may obscure small masses. No suspicious mass, microcalcifications, or architectural distortion. IMPRESSION: No evidence of breast malignancy. Recommend routine screening mammogram in one year. BI-RADS Category 1: Negative. No mammographic evidence of malignancy. Recommend routine screening m ammography in one year. A "normal" or negative report should not discourage follow up or biopsy of a clinically significant f inding. A written summary of these findings will be mailed to the patient. The patient will be entered into a mammography reporting system which will generate a reminder letter for the patient's next appointmen t at the appropriate interval. The [employer] recommends yearly mammograms starting at age 40 and continuing as l darlene as a woman is in good health. Breast MRI is recommended for women with an approximate 20-25% or greater lifetime risk of breast cancer, including women with a strong family history of breast or ova zoey cancer or who have been treated for Hodgkin's disease. View Signer Name: Timothy Hernandez MD Signed: 04/18/2019 1:35 PM Workstation Name: [id number]
== END 2019-04-18 12:19 | disposition home or self-care (01) ==
LOC: MAMMO 12:18
PROVIDERS: ATTEND Internal Medicine
DX: Z12.31 Encounter for screening mammogram for malignant neoplasm of breast (principal)
CPT/HCPCS: 77067

== ENCOUNTER 2020-05-08 10:21 | Outpatient (CLI) | payer MEDICAID ==
--- NOTE | 2020-05-08 11:52 | Mammography Report ---
DIGITAL SCREENING MAMMOGRAM WITH CAD, 05/08/2020 CLINICAL INFORMATION / INDICATION: Routine screening mammography. SCREENING MAMMOGRAM TECHNIQUE: Digital bilateral 2D mammography was obtained in the craniocaudal and mediolateral obliqu e projections. This examination was interpreted with the benefit of Computer-Aided Detection analysis . COMPARISON: 01/20/2012, 05/01/2014, 04/18/2019 FINDINGS: Breast Density: The breasts are heterogeneously dense, which may obscure small masses. No dominant mass, suspicious calcifications, or architectural distortion in either breast. IMPRESSION: No mammographic evidence of malignancy. Follow up recommendation: Routine yearly BI-RADS Category 1: Negative. A "normal" or negative report should not discourage follow up or biopsy of a clinically significant f inding. A written summary of these findings will be mailed to the patient. The patient will be entered into a mammography reporting system which will generate a reminder letter for the patient's next appointmen t at the appropriate interval. The [employer] recommends yearly mammograms starting at age 40 and continuing as l darlene as a woman is in good health. Breast MRI is recommended for women with an approximate 20-25% or greater lifetime risk of breast cancer, including women with a strong family history of breast or ova zoey cancer or who have been treated for Hodgkin's disease. Signer Name: Tru Jerry MD Signed: 05/08/2020 11:47 AM Workstation Name: [email or web address]
== END 2020-05-08 10:22 | disposition home or self-care (01) ==
LOC: MAMMO 10:21
PROVIDERS: ATTEND Internal Medicine
DX: Z12.31 Encounter for screening mammogram for malignant neoplasm of breast (principal)
CPT/HCPCS: 77067

== ENCOUNTER 2020-07-02 14:29 | Emergency (ER) | payer MEDICAID ==
[2020-07-02 15:50] VITALS: BP 107/78
--- NOTE | 2020-07-02 17:41 | XRay Report ---
Right foot radiograph, 3 views. HISTORY: Infection. COMPARISON: None FINDINGS: There is diffuse osteopenia. No aggressive cortical destructive changes identified. 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 No acute fracture or malalignment. No focal soft tissue abnor mality. IMPRESSION: No acute process. No evidence of osteomyelitis. Signer Name: Alejandro Juan MD Signed: 07/02/2020 5:37 PM Workstation Name: [id number]
[2020-07-02 18:14] LABS: Blood Urea Nitrogen 15 mg/dL (7-17); Calcium 10.1 mg/dL (8.4-10.2); Hemolysis Index 7
[2020-07-02 18:16] LABS: BUN/Creatinine Ratio 21
[2020-07-02 18:55] LABS: Basophils # (Auto) 0.1 K/mm3 (0.0-0.1); Basophils % (Auto) 1.2 % (0.0-1.8); Eosinophils # (Auto) 0.1 K/mm3 (0.0-0.4); Eosinophils % (Auto) 0.8 % (0.0-4.3); Hemoglobin 14.1 gm/dl (10.1-14.3); Lymphocytes # (Auto) 3.2 K/mm3 (1.2-5.4); Lymphocytes % (Auto) 33.9 % (13.4-35.0); Mean Corpuscular HGB Conc 34 % (30-34); Mean Corpuscular Volume 93 fl (79-97); Monocytes # (Auto) 0.6 K/mm3 (0.0-0.8); Monocytes % (Auto) 6.5 % (0.0-7.3); Platelet Count 305 K/mm3 (140-440); Red Blood Count 4.51 M/mm3 (3.65-5.03); Red Cell Distribution Width 14.5 % (13.2-15.2)
[2020-07-02] MEDS ORDERED: CLINDAMYCIN 300 MG CAP PO ONE (20:57)
[2020-07-02] MEDS ORDERED: HYDROcodone/ACETAMINOPHEN 5-325 MG TAB PO ONE (20:57)
--- NOTE | 2020-07-02 21:41 | Emergency Department Report ---
ED Lower Extremity HPI - General Chief Complaint: Extremity Problem,Nontraumatic Stated Complaint: TOE SWOLLEN BLACK(INFECTED) Time Seen by Provider: 07/02/20 17:10 Source: patient Mode of arrival: Wheelchair Limitations: Physical Limitation - History of Present Illness -: Gradual Injury: Toes: Right Type of Injury: other (toe wound) Place: home Severity: mild, moderate Worsens With: nothing Associated Symptoms: able to partially bear weight - Related Data Home Medications Medication Instructions Recorded Confirmed Last Taken Acetaminophen/Codeine [Tylenol 1 tab PO TID PRN 02/10/19 02/10/19 Unknown /Codeine # 3 tab] Aspirin [Aspirin BABY CHEW TAB] 81 mg PO QDAY 02/10/19 02/10/19 Unknown Losartan [Cozaar] 50 mg PO QDAY 02/10/19 02/10/19 Unknown Previous Rx's Medication Instructions Recorded Last Taken Type AtorvaSTATin [Lipitor] 80 mg PO QHS #30 tablet 03/17/18 Unknown Rx metFORMIN [Glucophage] 500 mg PO BIDDIAB #30 tablet 03/17/18 Unknown Rx Amlodipine Besylate [Norvasc] 5 mg PO QDAY #30 tablet 06/19/18 Unknown Rx methocarbamoL [Robaxin-750] 750 mg PO Q6HR PRN #20 tablet 06/19/18 Unknown Rx levETIRAcetam [Keppra TAB] 750 mg PO BID #60 tablet 02/12/19 Unknown Rx Chlorhexidine Gluconate 5 ml TP BID #240 liquid 07/02/20 Unknown Rx [Antiseptic Skin Cleanser] Sulfamethoxazole/Trimethoprim 1 each PO BID #20 tablet 07/02/20 Unknown Rx [Bactrim DS TAB] cephALEXin [Keflex] 500 mg PO Q8HR #30 cap 07/02/20 Unknown Rx Allergies Allergy/AdvReac Type Severity Reaction Status Date / Time No Known Allergies Allergy Verified 02/10/19 08:55 ED Review of Systems ROS: Stated complaint: TOE SWOLLEN BLACK(INFECTED) Other details as noted in HPI Comment: All other systems reviewed and negative ED Past Medical Hx - Past Medical History Hx Hypertension: Yes Hx CVA: Yes Hx Congestive Heart Failure: No Hx Diabetes: Yes Hx Deep Vein Thrombosis: No Hx Pulmonary Embolism: No Hx GERD: No Hx Liver Disease: No Hx Renal Disease: No Hx Sickle Cell Disease: No Hx Arthritis: No Hx Headaches / Migraines: No Hx Seizures: No Hx Kidney Stones: No Hx Psychiatric Treatment: No Hx Asthma: No Hx COPD: No Hx Tuberculosis: No Hx Dementia: No - Surgical History Hx Pacemaker: No - Social History Smoking Status: Former Smoker - Medications Home Medications: Home Medications Medication Instructions Recorded Confirmed Last Taken Type AtorvaSTATin [Lipitor] 80 mg PO QHS #30 tablet 03/17/18 02/10/19 Unknown Rx metFORMIN [Glucophage] 500 mg PO BIDDIAB #30 tablet 03/17/18 02/10/19 Unknown Rx Amlodipine Besylate [Norvasc] 5 mg PO QDAY #30 tablet 06/19/18 02/10/19 Unknown Rx methocarbamoL [Robaxin-750] 750 mg PO Q6HR PRN #20 tablet 06/19/18 02/10/19 Unk nown Rx Acetaminophen/Codeine [Tylenol 1 tab PO TID PRN 02/10/19 02/10/19 Unknown History /Codeine # 3 tab] Aspirin [Aspirin BABY CHEW TAB] 81 mg PO QDAY 02/10/19 02/10/19 Unknown History Losartan [Cozaar] 50 mg PO QDAY 02/10/19 02/10/19 Unknown History levETIRAcetam [Keppra TAB] 750 mg PO BID #60 tablet 02/12/19 Unknown Rx Chlorhexidine Gluconate 5 ml TP BID #240 liquid 07/02/20 Unknown Rx [Antiseptic Skin Cleanser] Sulfamethoxazole/Trimethoprim 1 each PO BID #20 tablet 07/02/20 Unknown Rx [Bactrim DS TAB] cephALEXin [Keflex] 500 mg PO Q8HR #30 cap 07/02/20 Unknown Rx ED Physical Exam - General Limitations: Physical Limitation General appearance: alert, in no apparent distress - Head Head exam: Present: atraumatic, normocephalic - Eye Eye exam: Present: normal appearance, PERRL, EOMI Pupils: Present: normal accommodation - ENT ENT exam: Present: normal exam, mucous membranes moist - Neck Neck exam: Present: normal inspection, full ROM - Respiratory Respiratory exam: Present: normal lung sounds bilaterally. Absent: respiratory distress, wheezes, rales, chest wall tenderness, accessory muscle use - Cardiovascular Cardiovascular Exam: Present: regular rate, normal rhythm. Absent: bradycardia, tachycardia, systolic murmur, diastolic murmur, rubs, gallop - GI/Abdominal GI/Abdominal exam: Present: soft, normal bowel sounds - Extremities Exam Extremities exam: Present: normal inspection, tenderness - Expanded Lower Extremity Exam Right Foot/Toe exam: Present: tenderness Neuro vascular tendon exam: Absent: sensory deficit, tendon deficit 1 - Discoloration to the toe hyperpigmented and induction. Minimal swelling t enderness with palpation. No lymphangitis is noted. No discharge. - Back Exam Back exam: Present: normal inspection. Absent: CVA tenderness (R), CVA tenderne ss (L), muscle spasm, paraspinal tenderness - Neurological Exam Neurological exam: Present: alert, oriented X3, CN II-XII intact. Absent: normal gait, abnormal gait, motor sensory deficit - Psychiatric Psychiatric exam: Present: normal affect, normal mood. Absent: anxious, flat affect - Skin Skin exam: Present: warm, dry, intact, normal color. Absent: rash, diaphoretic, erythema ED Course Vital Signs 07/02/20 15:49 Temperature 98.2 F Pulse Rate 76 Respiratory 18 Rate Blood Pressure 107/78 [Right] O2 Sat by Pulse 97 Oximetry ED Lower Extremity MDM - Lab Data Result diagrams: 07/02/20 17:37 07/02/20 17:37 Critical care attestation.: If time is entered above; I have spent that time in minutes in the direct care of this critically ill patient, excluding procedure time. ED Disposition Disposition: DC-01 TO HOME OR SELFCARE Condition: Stable Instructions: Wound Infection, [id number], Wound Care, Adult Prescriptions: Chlorhexidine Gluconate [Antiseptic Skin Cleanser] 5 ml TP BID #240 liquid Sulfamethoxazole/Trimethoprim [Bactrim DS TAB] 1 each PO BID #20 tablet cephALEXin [Keflex] 500 mg PO Q8HR #30 cap Referrals: [facility] [Provider Group] - 3-5 Days [facility], [Primary Care Provider] - 3-5 Days
[2020-07-02] MEDS ORDERED: HYDROcodone/ACETAMINOPHEN 5-325 MG TAB PO STA (21:43)
[2020-07-02] MEDS ORDERED: SULFAMETHOXAZOLE/TRIMETHOPRIM 800/160MG DS TAB PO STA (21:44)
== END 2020-07-02 21:53 | disposition home or self-care (01) ==
LOC: ED 14:29
DX: L08.9 Local infection of the skin and subcutaneous tissue, unspecified (principal); I10 Essential (primary) hypertension; E11.9 Type 2 diabetes mellitus without complications; Z87.891 Personal history of nicotine dependence; Z79.899 Other long term (current) drug therapy; Z86.73 Personal history of transient ischemic attack (TIA), and cerebral infarction without residual deficits
CPT/HCPCS: 36415; 80048; 82140; 85025; 99283

== ENCOUNTER 2020-07-30 14:22 | Emergency (ER) | payer MEDICAID ==
--- NOTE | 2020-07-30 15:00 | Cat Scan Report ---
CT HEAD WITHOUT CONTRAST INDICATION / CLINICAL INFORMATION: MAIN. TECHNIQUE: Axial imaging performed from the skull apex through the skull base without the use of cont rast. Sagittal and coronal reformatted images. All CT scans at this location are performed using CT dose reduction for ALARA by means of automated exposure control. COMPARISON: 02/10/2019 FINDINGS: CEREBRAL PARENCHYMA: Large area of encephalomalacia throughout the left MCA distribution is again not ed and unchanged. Chronic focal infarcts in the left basal ganglia and right caudate nucleus are unch anged. The remaining brain parenchyma demonstrates no acute abnormality. HEMORRHAGE: None. EXTRA-AXIAL SPACES: Normal in size and morphology for the patient's age. VENTRICULAR SYSTEM: Normal in size and morphology for the patient's age. MIDLINE SHIFT OR HERNIATION: None. CEREBELLUM / BRAINSTEM: No significant abnormality. CALVARIUM: No significant abnormality. ORBITS: Normal as visualized. PARANASAL SINUSES / MASTOID AIR CELLS: Normal as visualized. SOFT TISSUES of HEAD: No significant abnormality. ADDITIONAL FINDINGS: None. IMPRESSION: No acute intracranial abnormality. Chronic findings as described which are unchanged since 02/10/2019 . CODE STROKE: Time of Communication (ELECTRICAL INSTALLATION SUPERVISOR/CDT): 1355 Licensed Practitioner Receiving Report: Dr. Hernández A read back was performed. Signer Name: Iban Pereira Jr, MD Signed: 07/30/2020 2:55 PM Workstation Name: [id number]
[2020-07-30 15:03] LABS: Basophils # (Auto) 0.1 K/mm3 (0.0-0.1); Basophils % (Auto) 0.9 % (0.0-1.8); Eosinophils % (Auto) 0.2 % (0.0-4.3); Hematocrit 36.1 % (30.3-42.9); Hemoglobin 12.1 gm/dl (10.1-14.3); Lymphocytes % (Auto) 12.9 % (13.4-35.0); Mean Corpuscular HGB Conc 34 % (30-34); Mean Corpuscular Volume 95 fl (79-97); Monocytes # (Auto) 0.6 K/mm3 (0.0-0.8); Monocytes % (Auto) 3.8 % (0.0-7.3); Platelet Count 275 K/mm3 (140-440); Red Blood Count 3.81 M/mm3 (3.65-5.03); Red Cell Distribution Width 14.8 % (13.2-15.2)
--- NOTE | 2020-07-30 15:14 | Cat Scan Report ---
CTA NECK WITH CONTRAST HISTORY: Stroke COMPARISON: None. TECHNIQUE: Routine CTA of the neck is performed. 3-D/MIP reformats were postprocessed. Percentage st enosis is determined by direct quantitative measurements of diseased internal carotid artery diameter compared with normal distal internal carotid artery reference segments or by criteria similar to MATTHIAS CET where applicable. All CT scans at this location are performed using CT dose reduction for ALARA b y means of automated exposure control. CONTRAST: 100 ml of Omnipaque 350 FINDINGS: Aortic arch: No significant abnormality. Cervical vertebral arteries: No significant abnormality. carotid arteries: Mild partially calcified plaques are identified in the proximal left ICA. Moderate partially calcified plaques are identified in the cavernous ICAs bilaterally with stenosis approachin g 50%. The bilateral common carotid arteries are widely patent. Additional findings: None. IMPRESSION: No evidence for stenosis, dissection or large vessel occlusion. CTA HEAD WITH CONTRAST HISTORY: Stroke COMPARISON: 02/16/2018 TECHNIQUE: Routine non-contrast CT Head, CTA of the head and post-contrast CT Head are performed. 3-D /MIP reformats postprocessed. All CT scans at this location are performed using CT dose reduction for ALARA by means of automated e xposure control CONTRAST: 100 ml of Omnipaque 350 FINDINGS: CTA Head: Intracranial vertebral arteries: No significant abnormality. Basilar artery: No significant abnormality. Posterior cerebral arteries: No significant abnormality. Intracranial internal carotid arteries: No significant abnormality. Anterior cerebral arteries: Both anterior cerebral arteries appear hypoplastic but patent which is un changed since 2018 exam. Middle cerebral arteries: No significant abnormality. Dural venous sinuses:Not optimally opacified. No significant abnormality. Additional findings: Moderate left posterior communicating artery is noted. IMPRESSION: No evidence for large vessel occlusion. Signer Name: Iban Pereira Jr, MD Signed: 07/30/2020 3:09 PM Workstation Name: [id number]
[2020-07-30 15:23] LABS: INR 1.1 (0.87-1.13); Partial Thromboplastin Time 22.4 Sec. (24.2-36.6)
[2020-07-30 15:24] LABS: Thrombin Time 17.6 Sec. (15.1-19.6)
--- NOTE | 2020-07-30 15:25 | XRay Report ---
XR chest 1V ap INDICATION / CLINICAL INFORMATION: code stroke. COMPARISON: 02/10/2019 FINDINGS: SUPPORT DEVICES: None. HEART /PULMONARY VASCULATURE: No significant abnormality. LUNGS / PLEURA: Mildly low lung volumes with streaky opacities in the left perihilar region likely re flecting atelectasis. No focal airspace consolidation or pleural effusion. No pneumothorax. ADDITIONAL FINDINGS: No significant additional findings. IMPRESSION: 1. No acute findings. Signer Name: Alejandro Juan MD Signed: 07/30/2020 3:20 PM Workstation Name: [id number]
[2020-07-30 15:28] LABS: Creatine Kinase MB 1.1 ng/mL (0.0-4.0)
[2020-07-30 15:29] LABS: Alanine Aminotransferase 11 units/L (7-56); Albumin 3.5 g/dL (3.9-5); BUN/Creatinine Ratio 18; Blood Urea Nitrogen 14 mg/dL (7-17); Calcium 9.2 mg/dL (8.4-10.2); Hemolysis Index 57
--- NOTE | 2020-07-30 15:36 | Consultation ---
History of Present Illness - Reason for Consult Consult date: 07/30/20 - History of Present Illness [facility] Consult Note # Demographics Consult Type: Acute Stroke Level 1 (0-4.5 hrs) Patient Location: Emergency Room First Name: Celia Last Name: Roman Date of : 1955 Age: 65 Gender: Female Time of Initial Page ( Time): 07/30/2020, 14:25 Time of Return Call ( Time): 07/30/2020, 14:26 # HPI History: 65yo woman who had seizure today at 130PM and then was noted to have right facial droop. She is having problems talking. She has right gaze preferenc e, which is now improved. she does have right arm and leg weakness that is baseline from an old stroke. # Scores Time of exam and NIHSS ( Time): 07/30/2020, 14:32 Level of Consciousness 1a: [0] = Alert; keenly responsive LOC Questions 1b: [2] = Answers neither correctly LOC Commands 1c: [0] = Performs both tasks correctly Best Gaze 2: [0] = Normal Visual 3: [0] = No visual loss Facial Palsy 4: [1] = Minor paralysis Motor Arm Left 5a: [0] = No drift Motor Arm Right 5b: [4] = No movement Motor Leg Left 6a: [0] = No drift Motor Leg Right 6b: [4] = No movement Limb Ataxia 7: [0] = Absent Sensory 8: [0] = Normal Best Language 9: [3] = Mute Dysarthria 10: [2] = Severe dysarthria Extinction and Inattention 11: [0] = No abnormality NIHSS Total: 16 # PMH-FH-SH Past Medical History: Diabetes, hypertension, stroke # Data Glucose: [address]: no bleed, old stroke left hemisphere # Assessment Impression: Seizure, Todds Paralysis # Plan Thrombolytic/Intervention: NOT IV Thrombolytic or IA Intervention Thrombolytic Exclusion: other (see below), seizure, and likely not new stroke Intraarterial Exclusion: clinically not consistent with stroke Imaging: (urgency: routine admission): MRI Brain without contrast Diagnostic Test: EEG Medication: levetiracetam (Keppra) 500 mg twice daily Other: telemetry monitoring, seizure precautions, I have discussed my recommendations with the referring provider Additional Recommendations: 1. continue OP Medications and Allergies Allergies Allergy/AdvReac Type Severity Reaction Status Date / Time No Known Allergies Allergy Verified 02/10/19 08:55 Home Medications Medication Instructions Recorded Confirmed Last Taken Type AtorvaSTATin [Lipitor] 80 mg PO QHS #30 tablet 03/17/18 02/10/19 Unknown Rx metFORMIN [Glucophage] 500 mg PO BIDDIAB #30 tablet 03/17/18 02/10/19 Unknown Rx Amlodipine Besylate [Norvasc] 5 mg PO QDAY #30 tablet 06/19/18 02/10/19 Unknown Rx methocarbamoL [Robaxin-750] 750 mg PO Q6HR PRN #20 tablet 06/19/18 02/10/19 Unknown Rx Acetaminophen/Codeine [Tylenol 1 tab PO TID PRN 02/10/19 02/10/19 Unknown History /Codeine # 3 tab] Aspirin [Aspirin BABY CHEW TAB] 81 mg PO QDAY 02/10/19 02/10/19 Unknown History Losartan [Cozaar] 50 mg PO QDAY 02/10/19 02/10/19 Unknown History levETIRAcetam [Keppra TAB] 750 mg PO BID #60 tablet 02/12/19 Unknown Rx Chlorhexidine Gluconate 5 ml TP BID #240 liquid 07/02/20 Unknown Rx [Antiseptic Skin Cleanser] Sulfamethoxazole/Trimethoprim 1 each PO BID #20 tablet 07/02/20 Unknown Rx [Bactrim DS TAB] cephALEXin [Keflex] 500 mg PO Q8HR #30 cap 07/02/20 Unknown Rx Results - Labs CBC & Chem 7: 07/30/20 14:47 07/30/20 14:47 Labs: Abnormal lab results 07/30/20 07/30/20 07/30/20 Range/Units 14:47 14:47 14:47 WBC 15.3 H (4.5-11.0) K/mm3 Lymph % (Auto) 12.9 L (13.4-35.0) % Seg Neutrophils % 82.2 H (40.0-70.0) % Seg Neutrophils # 12.5 H (1.8-7.7) K/mm3 APTT 22.4 L (24.2-36.6) Sec. Sodium 135 L (137-145) mmol/L Potassium 3.1 L (3.6-5.0) mmol/L Glucose 155 H (65-100) mg/dL Total Protein 6.2 L (6.3-8.2) g/dL Albumin 3.5 L (3.9-5) g/dL
--- NOTE | 2020-07-30 18:20 | Emergency Department Report ---
ED General Adult HPI - General Chief complaint: Neuro Symptoms/Deficit Stated complaint: STROKE Time Seen by Provider: 07/30/20 14:29 Source: EMS Mode of arrival: Stretcher Limitations: Altered Mental Status - History of Present Illness Initial comments: Patient presents to the emergency department via EMS as a code stroke. Upon the patient arrival to the emergency department it was discovered that the patient had a seizure at 1:30 PM today. Patient was noted to have right facial droop. 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 What was different after the patient seizure today that she was gazing to the right side and the home health care nurse was there at the patient's home instructed the sister to call EMS for possible stroke. Patient has residual right arm and leg weakness from a prior CVA as mentioned above. -: Sudden Severity scale (0 -10): 0 Consistency: now resolved Improves with: none Worsens with: none Associated Symptoms: denies other symptoms Treatments Prior to Arrival: none - Related Data Home Medications Medication Instructions Recorded Confirmed Last Taken Acetaminophen/Codeine [Tylenol 1 tab PO TID PRN 02/10/19 02/10/19 Unknown /Codeine # 3 tab] Aspirin [Aspirin BABY CHEW TAB] 81 mg PO QDAY 02/10/19 02/10/19 Unknown Losartan [Cozaar] 50 mg PO QDAY 02/10/19 02/10/19 Unknown Previous Rx's Medication Instructions Recorded Last Taken Type AtorvaSTATin [Lipitor] 80 mg PO QHS #30 tablet 03/17/18 Unknown Rx metFORMIN [Glucophage] 500 mg PO BIDDIAB #30 tablet 03/17/18 Unknown Rx Amlodipine Besylate [Norvasc] 5 mg PO QDAY #30 tablet 06/19/18 Unknown Rx methocarbamoL [Robaxin-750] 750 mg PO Q6HR PRN #20 tablet 06/19/18 Unknown Rx levETIRAcetam [Keppra TAB] 750 mg PO BID #60 tablet 02/12/19 Unknown Rx Chlorhexidine Gluconate 5 ml TP BID #240 liquid 07/02/20 Unknown Rx [Antiseptic Skin Cleanser] Sulfamethoxazole/Trimethoprim 1 each PO BID #20 tablet 07/02/20 Unknown Rx [Bactrim DS TAB] cephALEXin [Keflex] 500 mg PO Q8HR #30 cap 07/02/20 Unknown Rx Allergies Allergy/AdvReac Type Severity Reaction Status Date / Time No Known Allergies Allergy Verified 02/10/19 08:55 ED Review of Systems ROS: Stated complaint: STROKE Other details as noted in HPI Comment: All other systems reviewed and negative Constitutional: denies: chills, fever Eyes: denies: eye pain, eye discharge, vision change ENT: denies: ear pain, throat pain Respiratory: denies: cough, shortness of breath, wheezing Cardiovascular: denies: chest pain, palpitations Endocrine: no symptoms reported Gastrointestinal: denies: abdominal pain, nausea, diarrhea Genitourinary: denies: urgency, dysuria, discharge Musculoskeletal: denies: back pain, joint swelling, arthralgia Skin: denies: rash, lesions Neurological: denies: headache, weakness, paresthesias Psychiatric: denies: anxiety, depression Hematological/Lymphatic: denies: easy bleeding, easy bruising ED Past Medical Hx - Past Medical History Hx Hypertension: Yes Hx CVA: Yes Hx Congestive Heart Failure: No Hx Diabetes: Yes Hx Deep Vein Thrombosis: No Hx Pulmonary Embolism: No Hx GERD: No Hx Liver Disease: No Hx Renal Disease: No Hx Sickle Cell Disease: No Hx Arthritis: No Hx Headaches / Migraines: No Hx Seizures: No Hx Kidney Stones: No Hx Psychiatric Treatment: No Hx Asthma: No Hx COPD: No Hx Tuberculosis: No Hx Dementia: No - Surgical History Hx Pacemaker: No - Social History Smoking Status: Unknown if ever smoked - Medications Home Medications: Home Medications Medication Instructions Recorded Confirmed Last Taken Type AtorvaSTATin [Lipitor] 80 mg PO QHS #30 tablet 03/17/18 02/10/19 Unknown Rx metFORMIN [Glucophage] 500 mg PO BIDDIAB #30 tablet 03/17/18 02/10/19 Unknown Rx Amlodipine Besylate [Norvasc] 5 mg PO QDAY #30 tablet 06/19/18 02/10/19 Unknown Rx methocarbamoL [Robaxin-750] 750 mg PO Q6HR PRN #20 tablet 06/19/18 02/10/19 Unknown Rx Acetaminophen/Codeine [Tylenol 1 tab PO TID PRN 02/10/19 02/10/19 Unknown History /Codeine # 3 tab] Aspirin [Aspirin BABY CHEW TAB] 81 mg PO QDAY 02/10/19 02/10/19 Unknown History Losartan [Cozaar] 50 mg PO QDAY 02/10/19 02/10/19 Unknown History levETIRAcetam [Keppra TAB] 750 mg PO BID #60 tablet 02/12/19 Unknown Rx Chlorhexidine Gluconate 5 ml TP BID #240 liquid 07/02/20 Unknown Rx [Antiseptic Skin Cleanser] Sulfamethoxazole/Trimethoprim 1 each PO BID #20 tablet 07/02/20 Unknown Rx [Bactrim DS TAB] cephALEXin [Keflex] 500 mg PO Q8HR #30 cap 07/02/20 Unknown Rx ED Physical Exam - General Limitations: Altered Mental Status General appearance: alert, in no apparent distress - Head Head exam: Present: atraumatic, normocephalic - Eye Eye exam: Present: normal appearance - ENT ENT exam: Present: mucous membranes moist - Neck Neck exam: Present: normal inspection - Respiratory Respiratory exam: Present: normal lung sounds bilaterally. Absent: respiratory distress - Cardiovascular Cardiovascular Exam: Present: regular rate, normal rhythm. Absent: systolic murmur, diastolic murmur, rubs, gallop - GI/Abdominal GI/Abdominal exam: Present: soft, normal bowel sounds. Absent: distended, tenderness - Extremities Exam Extremities exam: Present: other (Right lower extremity muscular atrophy) - Back Exam Back exam: Present: normal inspection - Neurological Exam Neurological exam: Present: alert, oriented X3, other (Patient has right-sided lower extremity and upper extremity weakness secondary to previous CVA) - Psychiatric Psychiatric exam: Present: normal affect, normal mood - Skin Skin exam: Present: warm, dry, intact, normal color. Absent: rash ED Course Vital Signs 07/30/20 07/30/20 07/30/20 14:55 15:15 15:31 Temperature Pulse Rate 85 83 Respiratory 17 16 Rate Blood Pressure 138/76 146/74 105/74 O2 Sat by Pulse 95 95 97 Oximetry 07/30/20 15:35 Temperature 98.1 F Pulse Rate Respiratory Rate Blood Pressure O2 Sat by Pulse Oximetry ED Medical Decision Making - Lab Data Result diagrams: 07/30/20 14:47 07/30/20 14:47 Lab Results 07/30/20 07/30/20 07/30/20 Range/Units 14:47 14:47 14:47 WBC 15.3 H (4.5-11.0) K/mm3 RBC 3.81 (3.65-5.03) M/mm3 Hgb 12.1 (10.1-14.3) gm/dl Hct 36.1 (30.3-42.9) % MCV 95 (79-97) fl MCH 32 (28-32) pg MCHC 34 (30-34) % RDW 14.8 (13.2-15.2) % Plt Count 275 (140-440) K/mm3 Lymph % (Auto) 12.9 L (13.4-35.0) % [place] % (Auto) 3.8 (0.0-7.3) % Eos % (Auto) 0.2 (0.0-4.3) % Baso % (Auto) 0.9 (0.0-1.8) % Lymph # (Auto) 2.0 (1.2-5.4) K/mm3 [place] # (Auto) 0.6 (0.0-0.8) K/mm3 Eos # (Auto) 0.0 (0.0-0.4) K/mm3 Baso # (Auto) 0.1 (0.0-0.1) K/mm3 Seg Neutrophils % 82.2 H (40.0-70.0) % Seg Neutrophils # 12.5 H (1.8-7.7) K/mm3 PT 14.0 (12.2-14.9) Sec. INR 1.10 (0.87-1.13) APTT 22.4 L (24.2-36.6) Sec. Thrombin Time 17.6 (15.1-19.6) Sec. Sodium 135 L (137-145) mmol/L Potassium 3.1 L (3.6-5.0) mmol/L Chloride 98.0 (98-107) mmol/L Carbon Dioxide 26 (22-30) mmol/L Anion Gap 14 mmol/L BUN 14 (7-17) mg/dL Creatinine 0.8 (0.6-1.2) mg/dL Estimated GFR > 60 ml/min BUN/Creatinine Ratio 18 % Glucose 155 H (65-100) mg/dL Calcium 9.2 (8.4-10.2) mg/dL Total Bilirubin 0.30 (0.1-1.2) mg/dL AST 17 (5-40) units/L ALT 11 (7-56) units/L Alkaline Phosphatase 61 (35-129) units/L Total Creatine Kinase 105 (30-135) units/L CK-MB (CK-2) 1.1 (0.0-4.0) ng/mL CK-MB (CK-2) Rel Index 1.0 (0-4) Troponin T < 0.010 (0.00-0.029) ng/mL Total Protein 6.2 L (6.3-8.2) g/dL Albumin 3.5 L (3.9-5) g/dL Albumin/Globulin Ratio 1.3 % Plasma/Serum Alcohol (0-0.07) % 07/30/20 Range/Units 14:47 WBC (4.5-11.0) K/mm3 RBC (3.65-5.03) M/mm3 Hgb (10.1-14.3) gm/dl Hct (30.3-42.9) % MCV (79-97) fl MCH (28-32) pg MCHC (30-34) % RDW (13.2-15.2) % Plt Count (140-440) K/mm3 Lymph % (Auto) (13.4-35.0) % [place] % (Auto) (0.0-7.3) % Eos % (Auto) (0.0-4.3) % Baso % (Auto) (0.0-1.8) % Lymph # (Auto) (1.2-5.4) K/mm3 [place] # (Auto) (0.0-0.8) K/mm3 Eos # (Auto) (0.0-0.4) K/mm3 Baso # (Auto) (0.0-0.1) K/mm3 Seg Neutrophils % (40.0-70.0) % Seg Neutrophils # (1.8-7.7) K/mm3 PT (12.2-14.9) Sec. INR (0.87-1.13) APTT (24.2-36.6) Sec. Thrombin Time (15.1-19.6) Sec. Sodium (137-145) mmol/L Potassium (3.6-5.0) mmol/L Chloride (98-107) mmol/L Carbon Dioxide (22-30) mmol/L Anion Gap mmol/L BUN (7-17) mg/dL Creatinine (0.6-1.2) mg/dL Estimated GFR ml/min BUN/Creatinine Ratio % Glucose (65-100) mg/dL Calcium (8.4-10.2) mg/dL Total Bilirubin (0.1-1.2) mg/dL AST (5-40) units/L ALT (7-56) units/L Alkaline Phosphatase (35-129) units/L Total Creatine Kinase (30-135) units/L CK-MB (CK-2) (0.0-4.0) ng/mL CK-MB (CK-2) Rel Index (0-4) Troponin T (0.00-0.029) ng/mL Total Protein (6.3-8.2) g/dL Albumin (3.9-5) g/dL Albumin/Globulin Ratio % Plasma/Serum Alcohol < 0.01 (0-0.07) % - EKG Data -: EKG Interpreted by [facility] EKG shows normal: sinus rhythm Rate: normal - Radiology Data Radiology results: report reviewed - Medical Decision Making Upon patient's arrival code stroke was initiated Teleneurology evaluated the patient After evaluation they also felt that the patient was postictal initially on arrival due to her ocular symptoms being resolved and the patient being back to baseline per her sister. Patient given IV Keppra Critical care attestation.: If time is entered above; I have spent that time in minutes in the direct care of this critically ill patient, excluding procedure time. ED Disposition Clinical Impression: Seizure, Esa's paralysis Disposition: DC- TO HOME OR SELFCARE Is pt being admited?: No Does the pt Need Aspirin: No Condition: Stable Instructions: Seizure, Adult, Epilepsy Additional Instructions: Return if worse Referrals: PRIMARY MD OFELIA [Primary Care Provider] - 3-5 Days DEMETRI DAVIS MD [Staff Physician] - 3-5 Days Time of Disposition: 19:02 - Assessment Assessment Interval: Baseline - Level of Consciousness 1a. Level of Consciousness: alert/keenly responsive - LOC Questions 1b. LOC Questions: answers no questions correctly - LOC Command 1c. LOC Commands: performs tasks correctly - Best Gaze 2. Best Gaze: normal - Visual 3. Visual: no visual loss - Facial Palsy 4. Facial Palsy: minor paralysis - Motor Arm 5a. Motor Arm Left: no drift 5b. Motor Arm Right: no movement - Motor Leg 6a. Motor Leg Left: no drift 6b. Motor Leg Right: no movement - Limb Ataxia 7. Limb Ataxia: absent - Sensory 8. Sensory: normal - Best Language 9. Best Language: mute/global aphasia - Dysarthria 10. Dysarthria: severe dysarthria - Extinction and Inattention 11. Extinction/Inattention: no abnormality - Scoring Total Score: 16 Stroke Severity: Moderate to Severe Stroke
[2020-07-30] MEDS ORDERED: levETIRAcetam 1000 MG/NS 0.75% 1,000 MG/100 ML BAG IV ONE (18:31)
[2020-07-30 22:17] VITALS: BP 117/85
--- NOTE | 2020-08-01 11:50 | Electrocardiograph Report ---
[facility] Test Date: 2020-07-30 Test Time: 14:59:06 Pat Name: DHARMESH MEEHAN Department: Room: Gender: F [employer] Specialist: JUDSON : 1955 Requested By: JAYNE MARCUS Order Number: [id number] Reading MD: Fransisca Rudolph Measurements Intervals Tram Rate: 88 P: 54 AL: 134 QRS: -82 QRSD: 103 T: 41 QT: 388 QTc: 471 Interpretive Statements Sinus rhythm LEFT AXIS DEVIATION No previous ECG available for comparison Electronically Signed On 08-01-2020 11:50:00 EDT by Fransisca Rudolph
== END 2020-07-30 20:30 | disposition home or self-care (01) ==
LOC: ED 14:22
DX: G83.84 Todd's paralysis (postepileptic) (principal); R56.9 Unspecified convulsions; I10 Essential (primary) hypertension; E11.9 Type 2 diabetes mellitus without complications; Z86.73 Personal history of transient ischemic attack (TIA), and cerebral infarction without residual deficits; Z79.84 Long term (current) use of oral hypoglycemic drugs; Z79.899 Other long term (current) drug therapy
CPT/HCPCS: 36415; 70450; 70496; 70498; 71045; 80053; 82550; 82553; 84484; 85025; 85610; 85670; 85730; 93005; 96365; 99285; J1953; Q9967; 80320; G0480

== ENCOUNTER 2020-08-05 08:08 | Outpatient (CLI) | payer MEDICAID ==
[2020-08-05] MEDS ORDERED: LIDOCAINE (4%) 40 MG/ML TOPICAL SOLN 50 ML BOTTLE TP ONE (08:36)
== END 2020-08-05 08:09 | disposition home or self-care (01) ==
LOC: WOUND 08:08 → US 08:08 → WOUND 08:09
PROVIDERS: ATTEND Surgery
DX: E11.621 Type 2 diabetes mellitus with foot ulcer (principal); L97.512 Non-pressure chronic ulcer of other part of right foot with fat layer exposed; S91.104A Unspecified open wound of right lesser toe(s) without damage to nail, initial encounter; R26.9 Unspecified abnormalities of gait and mobility; L84 Corns and callosities; I10 Essential (primary) hypertension; R56.9 Unspecified convulsions; Z87.891 Personal history of nicotine dependence; Z90.710 Acquired absence of both cervix and uterus; Z86.73 Personal history of transient ischemic attack (TIA), and cerebral infarction without residual deficits; Z79.82 Long term (current) use of aspirin; X58.XXXA Exposure to other specified factors, initial encounter; Y93.89 Activity, other specified; Y92.89 Other specified places as the place of occurrence of the external cause; Y99.8 Other external cause status
CPT/HCPCS: 11042; G0463; 99214

== ENCOUNTER 2020-08-06 12:45 | Emergency (ER) | payer MEDICAID ==
[2020-08-06 19:53] VITALS: BP 128/86
[2020-08-06] MEDS ORDERED: levETIRAcetam 1000 MG/NS 0.75% 1,000 MG/100 ML BAG IV ONE (20:31)
--- NOTE | 2020-08-06 20:37 | Emergency Department Report ---
HPI - General Chief Complaint: Seizure Time Seen by Provider: 08/06/20 20:17 - HPI HPI: Room 7 The patient is a 65-year-old female present with a chief complaint of seizures. Patient came to the ED with family stating that they never received the [facility] ription for her Keppra since her last visit to this ED. Family states the patient has had several seizures since her discharge with the last one being this morning. Patient currently denies complaints and states she is ready to go home but just needs her seizure medication. ED Past Medical Hx - Past Medical History Previous Medical History?: Yes Hx Hypertension: Yes Hx CVA: Yes Hx Diabetes: Yes Hx Seizures: Yes - Family History Family history: no significant - Social History Smoking Status: Former Smoker (None x2 years) Substance Use Type: Alcohol (Rarely), Marijuana (Rarely) - Medications Home Medications: Home Medications Medication Instructions Recorded Confirmed Last Taken Type AtorvaSTATin [Lipitor] 80 mg PO QHS #30 tablet 03/17/18 02/10/19 Unknown Rx metFORMIN [Glucophage] 500 mg PO BIDDIAB #30 tablet 03/17/18 02/10/19 Unknown Rx Amlodipine Besylate [Norvasc] 5 mg PO QDAY #30 tablet 06/19/18 02/10/19 Unknown Rx methocarbamoL [Robaxin-750] 750 mg PO Q6HR PRN #20 tablet 06/19/18 02/10/19 Unknown Rx Acetaminophen/Codeine [Tylenol 1 tab PO TID PRN 02/10/19 02/10/19 Unknown History /Codeine # 3 tab] Aspirin [Aspirin BABY CHEW TAB] 81 mg PO QDAY 02/10/19 02/10/19 Unknown History Losartan [Cozaar] 50 mg PO QDAY 02/10/19 02/10/19 Unknown History Chlorhexidine Gluconate 5 ml TP BID #240 liquid 07/02/20 Unknown Rx [Antiseptic Skin Cleanser] Sulfamethoxazole/Trimethoprim 1 each PO BID #20 tablet 07/02/20 Unknown Rx [Bactrim DS TAB] cephALEXin [Keflex] 500 mg PO Q8HR #30 cap 07/02/20 Unknown Rx levETIRAcetam [Keppra TAB] 750 mg PO BID #90 tablet 08/06/20 Unknown Rx ED Review of Systems ROS: Stated complaint: SEIZURES Other details as noted in HPI Constitutional: no symptoms reported Eyes: denies: eye pain ENT: denies: throat pain Respiratory: no symptoms reported Cardiovascular: denies: chest pain Endocrine: no symptoms reported Gastrointestinal: denies: abdominal pain Genitourinary: denies: dysuria Musculoskeletal: denies: back pain Neurological: denies: headache Physical Exam - Physical Exam Vital Signs: Vital Signs 08/06/20 19:53 Pulse Rate 68 Respiratory 18 Rate Blood Pressure 128/86 [Left] O2 Sat by Pulse 97 Oximetry Physical Exam: GENERAL: The patient is well-developed well-nourished female lying on stretcher not appearing to be in acute distress. [] HEENT: Normocephalic. Atraumatic. Extraocular motions are intact. Patient has moist mucous membranes. NECK: Supple. Trachea midline CHEST/LUNGS: Clear to auscultation. There is no respiratory distress noted. HEART/CARDIOVASCULAR: Regular. There is no tachycardia. There is no gallop rub or murmur. ABDOMEN: Abdomen is soft, nontender. Patient has normal bowel sounds. There is no abdominal distention. SKIN: There is no rash. There is no edema. There is no diaphoresis. NEURO: The patient is awake, alert, and oriented. The patient is cooperative. The patient has right-sided weakness from previous CVA. MUSCULOSKELETAL: There is no evidence of acute injury. ED Course Vital Signs 08/06/20 19:53 Pulse Rate 68 Respiratory 18 Rate Blood Pressure 128/86 [Left] O2 Sat by Pulse 97 Oximetry ED Medical Decision Making - Differential Diagnosis Seizures Critical care attestation.: If time is entered above; I have spent that time in minutes in the direct care of this critically ill patient, excluding procedure time. ED Disposition Clinical Impression: Seizure, Encounter for medication refill Disposition: DC-01 TO HOME OR SELFCARE Is pt being admited?: No Does the pt Need Aspirin: No Condition: Stable Instructions: Epilepsy, [id number] Additional Instructions: Return to the emergency department should you develop worsening symptoms, inability to tolerate food or liquids, high fever or any other concerns Prescriptions: levETIRAcetam [Keppra TAB] 750 mg PO BID #90 tablet Referrals: OWEN EDEN MD [Primary Care Provider] - 3-5 Days Time of Disposition: 20:42
== END 2020-08-06 21:16 | disposition home or self-care (01) ==
LOC: ED 12:45
DX: R56.9 Unspecified convulsions (principal); Z76.0 Encounter for issue of repeat prescription; I10 Essential (primary) hypertension; E11.9 Type 2 diabetes mellitus without complications; F12.10 Cannabis abuse, uncomplicated; Z86.73 Personal history of transient ischemic attack (TIA), and cerebral infarction without residual deficits; Z87.891 Personal history of nicotine dependence; Z79.84 Long term (current) use of oral hypoglycemic drugs; Z79.899 Other long term (current) drug therapy
CPT/HCPCS: 0001A; 91300; 96365; 99282; J1953

== ENCOUNTER 2020-09-09 13:25 | Outpatient (CLI) | payer MEDICAID ==
[2020-09-09] MEDS ORDERED: LIDOCAINE (4%) 40 MG/ML TOPICAL SOLN 50 ML BOTTLE TP ONE (13:38)
== END 2020-09-09 13:26 | disposition home or self-care (01) ==
LOC: WOUND 13:25
PROVIDERS: ATTEND Surgery
DX: E11.621 Type 2 diabetes mellitus with foot ulcer (principal); L97.512 Non-pressure chronic ulcer of other part of right foot with fat layer exposed; S91.104D Unspecified open wound of right lesser toe(s) without damage to nail, subsequent encounter; R26.9 Unspecified abnormalities of gait and mobility; L84 Corns and callosities; I10 Essential (primary) hypertension; R56.9 Unspecified convulsions; Z87.891 Personal history of nicotine dependence; Z90.710 Acquired absence of both cervix and uterus; Z86.73 Personal history of transient ischemic attack (TIA), and cerebral infarction without residual deficits; Z79.82 Long term (current) use of aspirin; X58.XXXD Exposure to other specified factors, subsequent encounter

== ENCOUNTER 2020-10-04 10:03 | Outpatient (CLI) | payer MEDICAID ==
--- NOTE | 2020-10-04 17:49 | Vascular Lab Report ---
DUPLEX DOPPLER LOWER EXTREMITY ARTERIAL, RIGHT INDICATION / CLINICAL INFORMATION: UNSPECIFIED OPEN WOUND OF RIGHT LESSER TOE W/O DAMAGE TO NAIL. TECHNIQUE: Arterial duplex examination of the right lower extremity performed using B-mode, color tr w and spectral Doppler assessment. COMPARISON: None available. FINDINGS: RIGHT: Common Femoral Artery: PSV 94 cm/sec. Monophasic waveform. Proximal SFA: PSV 40 cm/sec. Monophasic waveform. Mid SFA: Occluded. Distal SFA: PSV 77 cm/sec. Monophasic waveform. Popliteal artery: PSV 54 cm/sec. Monophasic waveform. Posterior tibial artery: PSV 12 cm/sec. Monophasic waveform. Dorsalis Pedis Artery: PSV 16 cm/sec. Monophasic waveform. Right ROXANN: Not performed. IMPRESSION: 1. Severe right lower extremity arterial disease with occlusion of the mid superficial femoral artery with collateral recanalization to the distal superficial femoral artery. Ankle-Brachial Index (ROXANN): - Calcified arteries > 1.4 - Normal = 0.9-1.4 - Mild PAD = 0.7-0.89 - Moderate PAD = 0.51-0.69 - Severe PAD < 0.5 Doppler Waveform: - Triphasic is normal. - Biphasic is abnormal if clear transition from triphasic signal along vascular tree. - Monophasic is abnormal. Scribed by: Lauren Bliss RDMS, RVT Scribed: 10/04/2020 1:03 PM I have reviewed the images, agree with this report, and edited this report as needed. Signer Name: Ryan Bingham MD Signed: 10/04/2020 5:44 PM Workstation Name: [id number]
== END 2020-10-04 10:04 | disposition home or self-care (01) ==
LOC: VAS 10:03
PROVIDERS: ATTEND Surgery
DX: S91.104A Unspecified open wound of right lesser toe(s) without damage to nail, initial encounter (principal); I65.21 Occlusion and stenosis of right carotid artery; X58.XXXA Exposure to other specified factors, initial encounter; Y93.89 Activity, other specified; Y92.89 Other specified places as the place of occurrence of the external cause; Y99.8 Other external cause status

== ENCOUNTER 2020-10-16 11:59 | Outpatient (CLI) | payer MEDICAID ==
[2020-10-16] MEDS ORDERED: LIDOCAINE (4%) 40 MG/ML TOPICAL SOLN 50 ML BOTTLE TP ONE (13:17)
== END 2020-10-16 12:00 | disposition home or self-care (01) ==
LOC: WOUND 11:59
PROVIDERS: ATTEND Surgery
DX: E11.621 Type 2 diabetes mellitus with foot ulcer (principal); L97.512 Non-pressure chronic ulcer of other part of right foot with fat layer exposed; S91.104D Unspecified open wound of right lesser toe(s) without damage to nail, subsequent encounter; R26.9 Unspecified abnormalities of gait and mobility; L84 Corns and callosities; I10 Essential (primary) hypertension; R56.9 Unspecified convulsions; Z87.891 Personal history of nicotine dependence; Z90.710 Acquired absence of both cervix and uterus; Z86.73 Personal history of transient ischemic attack (TIA), and cerebral infarction without residual deficits; Z79.82 Long term (current) use of aspirin; X58.XXXD Exposure to other specified factors, subsequent encounter

== ENCOUNTER 2020-11-26 12:30 | Outpatient (CLI) | payer MEDICAID ==
--- NOTE | 2020-11-26 14:34 | XRay Report ---
RIGHT SHOULDER 3 VIEWS INDICATION: PAIN IN RIGHT SHOULDER. COMPARISON: None. IMPRESSION: The humeral head is subluxed inferiorly by at least 1 cm. This has the appearance of a p artial dislocation. No acute osseous injury is appreciated. Mild osteoarthritic changes are noted. M ild osteopenia. Signer Name: Iban Pereira Jr, MD Signed: 11/26/2020 2:29 PM Workstation Name: [id number]
== END 2020-11-26 12:31 | disposition home or self-care (01) ==
LOC: XRAY 12:30
PROVIDERS: ATTEND Internal Medicine
DX: M19.011 Primary osteoarthritis, right shoulder (principal); M85.811 Other specified disorders of bone density and structure, right shoulder

== ENCOUNTER 2021-02-06 03:00 | Emergency (ER) | payer MEDICAID ==
[2021-02-06] MEDS ORDERED: LORazepam 2 MG/ML VIAL IV ONE (03:25)
[2021-02-06] MEDS ORDERED: ONDANSETRON 4 MG/2 ML INJ IV ONE (03:26)
[2021-02-06] MEDS ORDERED: MORPHINE 4 MG/1 ML INJ IV ONE (03:26)
[2021-02-06] MEDS ORDERED: KETOROLAC 30 MG/1 ML INJ IV ONE (03:26)
--- NOTE | 2021-02-06 03:31 | Emergency Department Report ---
ED Extremity Problem HPI - General Chief complaint: Pain General Stated complaint: RIGHT SIDE PAIN Time Seen by Provider: 02/06/21 03:16 Source: EMS, old records reviewed Mode of arrival: Stretcher Limitations: Language Barrier - History of Present Illness Initial comments: 65-year-old female with a past medical history of CVA with residual right-sided deficit, chronic right arm and leg pain, diabetes, hypertension, seizures presents to the hospital complaining persistent pain to right arm and leg since 5:30 PM. Patient has a speech deficit secondary to previous CVA and has a difficult time communicating. I spoke to her on the phone he states that patient has history of chronic right sided pain that is intermittent. She apparently had a recent arterial procedure. As per medical record review vascular surgeon note below - Brief post op/procedure progress note Date of procedure: 02/04/21 Pre-op diagnosis: Right leg rest pain Post-op diagnosis: same Procedure: RLE arteriogram Right external iliac/common femoral artery angioplasty Right SFA revascularizatoin with angioplasty Anesthesia: MAC Findings: Extensive atherosclerotic disease with right SFA occlusion Moderate stenosis of the right common femoral artery and external iliac artery with successful balloon angioplasty Chronic occlusion of the SFA. Balloon angioplasty with inline flow to the popliteal artery - Related Data Home Medications Medication Instructions Recorded Confirmed Last Taken Acetaminophen/Codeine [Tylenol 1 tab PO TID PRN 02/10/19 02/04/21 1 Week Ago /Codeine # 3 tab] ~01/28/21 Aspirin [Aspirin BABY CHEW TAB] 81 mg PO QDAY 02/10/19 02/04/21 02/03/21 Losartan [Cozaar] 50 mg PO QDAY 02/10/19 02/04/21 02/03/21 Previous Rx's Medication Instructions Recorded Last Taken Type AtorvaSTATin [Lipitor] 80 mg PO QHS #30 tablet 03/17/18 02/03/21 Rx metFORMIN [Glucophage] 500 mg PO BIDDIAB #30 tablet 03/17/18 02/03/21 Rx levETIRAcetam [Keppra TAB] 750 mg PO BID #90 tablet 08/06/20 02/03/21 Rx HYDROcodone/APAP 5-325 [[place] 1 each PO Q6HR PRN #15 tablet 02/06/21 Unknown Rx 5/325] Allergies Allergy/AdvReac Type Severity Reaction Status Date / Time No Known Allergies Allergy Verified 02/06/21 03:19 ED Review of Systems ROS: Stated complaint: RIGHT SIDE PAIN Other details as noted in HPI Comment: All other systems reviewed and negative ED Past Medical Hx - Past Medical History Hx Hypertension: Yes Hx CVA: Yes Hx Congestive Heart Failure: No Hx Diabetes: Yes Hx Deep Vein Thrombosis: No Hx Pulmonary Embolism: No Hx GERD: No Hx Liver Disease: No Hx Renal Disease: No Hx Sickle Cell Disease: No Hx Arthritis: No Hx Headaches / Migraines: No Hx Seizures: Yes Hx Kidney Stones: No Hx Psychiatric Treatment: No Hx Asthma: No Hx COPD: No Hx Tuberculosis: No Hx Dementia: No - Surgical History Hx Pacemaker: No - Social History Smoking Status: Unknown if ever smoked - Medications Home Medications: Home Medications Medication Instructions Recorded Confirmed Last Taken Type AtorvaSTATin [Lipitor] 80 mg PO QHS #30 tablet 03/17/18 02/04/21 02/03/21 Rx metFORMIN [Glucophage] 500 mg PO BIDDIAB #30 tablet 03/17/18 02/04/21 02/03/21 Rx Acetaminophen/Codeine [Tylenol 1 tab PO TID PRN 02/10/19 02/04/21 1 Week Ago History /Codeine # 3 tab] ~01/28/21 Aspirin [Aspirin BABY CHEW TAB] 81 mg PO QDAY 02/10/19 02/04/21 02/03/21 History Losartan [Cozaar] 50 mg PO QDAY 02/10/19 02/04/21 02/03/21 History levETIRAcetam [Keppra TAB] 750 mg PO BID #90 tablet 08/06/20 02/04/21 02/03/21 Rx HYDROcodone/APAP 5-325 [[place] 1 each PO Q6HR PRN #15 tablet 02/06/21 Unknown Rx 5/325] ED Physical Exam - General Limitations: Language Barrier - Other Other exam information: General: No acute distress Head: Atraumatic Eyes: normal appearance ENT: Moist mucous membranes Neck: Normal appearance, no midline tenderness Chest: Clear to auscultation bilaterally CV: Regular rate and rhythm Abdomen: Soft, normal bowel sounds, nontender, nondistended, no rebound or guarding Back: Normal inspection Extremity: Normal inspection, full range of motion. Nurse reports that the she is able to Doppler bilateral DP pulses. Both lower extremities warm to touch Neuro: Alert, stuttering difficult to understand speech, right arm weakness with contracture, right leg weakness noted. 5/5 left upper lower extremity strength. Patient has involuntary spasms of the right arm and right leg with pain Psych: Appropriate behavior Skin: No rash ED Course Vital Signs 02/06/21 02/06/21 02/06/21 03:12 03:18 03:31 Temperature 98.4 F Pulse Rate 91 H 91 H 79 Respiratory 16 20 17 Rate Blood Pressure 142/94 Blood Pressure 148/86 [Right] O2 Sat by Pulse 95 100 Oximetry 02/06/21 04:01 Temperature Pulse Rate 73 Respiratory 14 Rate Blood Pressure 122/82 Blood Pressure [Right] O2 Sat by Pulse 97 Oximetry ED Medical Decision Making - Lab Data Result diagrams: 02/06/21 03:59 02/06/21 03:59 Lab Results 02/06/21 02/06/21 Range/Units 03:59 03:59 WBC 7.4 (4.5-11.0) K/mm3 RBC 4.00 (3.65-5.03) M/mm3 Hgb 12.0 D (10.1-14.3) gm/dl Hct 37.0 D (30.3-42.9) % MCV 93 (79-97) fl MCH 30 (28-32) pg MCHC 32 (30-34) % RDW 13.4 (13.2-15.2) % Plt Count 279 (140-440) K/mm3 Lymph % (Auto) 20.8 (13.4-35.0) % [place] % (Auto) 9.1 H (0.0-7.3) % Eos % (Auto) 1.5 (0.0-4.3) % Baso % (Auto) 0.9 (0.0-1.8) % Lymph # (Auto) 1.5 (1.2-5.4) K/mm3 [place] # (Auto) 0.7 (0.0-0.8) K/mm3 Eos # (Auto) 0.1 (0.0-0.4) K/mm3 Baso # (Auto) 0.1 (0.0-0.1) K/mm3 Seg Neutrophils % 67.7 (40.0-70.0) % Seg Neutrophils # 5.0 (1.8-7.7) K/mm3 Sodium 142 (137-145) mmol/L Potassium 3.7 (3.6-5.0) mmol/L Chloride 103.4 (98-107) mmol/L Carbon Dioxide 23 (22-30) mmol/L Anion Gap 19 mmol/L BUN 9 (7-17) mg/dL Creatinine 0.7 (0.6-1.2) mg/dL Estimated GFR > 60 ml/min BUN/Creatinine Ratio 13 % Glucose 120 H (65-100) mg/dL Calcium 9.9 (8.4-10.2) mg/dL Magnesium 1.90 (1.7-2.3) mg/dL Total Bilirubin 0.30 (0.1-1.2) mg/dL AST 18 (5-40) units/L ALT 11 (7-56) units/L Alkaline Phosphatase 79 (35-129) units/L Total Protein 6.6 (6.3-8.2) g/dL Albumin 4.1 (3.9-5) g/dL Albumin/Globulin Ratio 1.6 % - Medical Decision Making 62-year female presents to the hospital with complaints of chronic right upper and lower extremity pain status post CVA. Patient noted to have involuntary s pasms with pain during ED is evaluation. Patient was treated with Ativan 0.5 mg and morphine 4 mg with improvement in symptoms. Labs do not reveal any acute abnormalities with normal electrolytes. Patient has dopplerable distal pulses updated on patient's disposition and plan for Critical Care Time: No Critical care attestation.: If time is entered above; I have spent that time in minutes in the direct care of this critically ill patient, excluding procedure time. ED Disposition Clinical Impression: Chronic pain, Hemiparesis affecting right side as late effect of cerebrovascular accident, Muscle spasm, PAD (peripheral artery disease) Disposition: 01 HOME / SELF CARE / HOMELESS Is pt being admited?: No Does the pt Need Aspirin: No Condition: Stable Instructions: Muscle Cramps and Spasms, [id number], Chronic Pain, Adult, Preventing Peripheral Vascular Disease Additional Instructions: Take the medication as prescribed. Follow-up with your doctor or doctor/clinic provided. Return if symptoms worsen as indicated by your discharge instructions. Prescriptions: HYDROcodone/APAP 5-325 [[place] 5/325] 1 each PO Q6HR PRN #15 tablet PRN Reason: Pain Referrals: PRIMARY CARE, [Primary Care Provider] - 3-5 Days Time of Disposition: 05:45
[2021-02-06 04:17] LABS: Basophils # (Auto) 0.1 K/mm3 (0.0-0.1); Basophils % (Auto) 0.9 % (0.0-1.8); Eosinophils # (Auto) 0.1 K/mm3 (0.0-0.4); Eosinophils % (Auto) 1.5 % (0.0-4.3); Lymphocytes # (Auto) 1.5 K/mm3 (1.2-5.4); Lymphocytes % (Auto) 20.8 % (13.4-35.0); Mean Corpuscular HGB Conc 32 % (30-34); Mean Corpuscular Volume 93 fl (79-97); Monocytes # (Auto) 0.7 K/mm3 (0.0-0.8); Monocytes % (Auto) 9.1 % (0.0-7.3); Platelet Count 279 K/mm3 (140-440); Red Cell Distribution Width 13.4 % (13.2-15.2)
[2021-02-06 04:38] LABS: Alanine Aminotransferase 11 units/L (7-56); Albumin 4.1 g/dL (3.9-5); Blood Urea Nitrogen 9 mg/dL (7-17); Calcium 9.9 mg/dL (8.4-10.2); Hemolysis Index 19
[2021-02-06 05:06] LABS: BUN/Creatinine Ratio 13
[2021-02-06 06:22] VITALS: BP 116/71
== END 2021-02-06 06:23 | disposition home or self-care (01) ==
LOC: ED 03:00
DX: I69.951 Hemiplegia and hemiparesis following unspecified cerebrovascular disease affecting right dominant side (principal); I73.9 Peripheral vascular disease, unspecified; G89.29 Other chronic pain; I10 Essential (primary) hypertension; E11.9 Type 2 diabetes mellitus without complications; M62.838 Other muscle spasm; Z79.84 Long term (current) use of oral hypoglycemic drugs; Z79.899 Other long term (current) drug therapy
CPT/HCPCS: 36415; 80053; 83735; 85025; 96374; 96375; 99284; J1885; J2060; J2270; J2405

== ENCOUNTER 2021-05-15 10:36 | Outpatient (CLI) | payer MEDICAID ==
--- NOTE | 2021-05-15 12:39 | Magnetic Resonance Report ---
MRI cervical spine without contrast INDICATION: Right shoulder pain TECHNIQUE: Axial sagittal images FINDINGS: Discogenic degenerative changes seen throughout spine. Endplate changes are seen throughout . Craniocervical junction appears normal. C2-C3: No spinal canal narrowing or neuroforaminal narrowing. C3-C4: Disc desiccation and disc osteophyte slightly asymmetric to the right. Mild right neuroforamin al narrowing. C4-C5: Disc desiccation with disc osteophyte and uncovertebral degenerative change. Moderate to sever e left and moderate right neuroforaminal narrowing. No severe canal narrowing. C5-C6: Disc desiccation with disc osteophyte. Flattening the canal and cord with moderate canal narro wing. Moderate to severe left and [id number] right neuroforaminal narrowing. C6-C7: Disc desiccation endplate change. Disc osteophyte with severe left and moderate to severe righ t neuroforaminal narrowing. Moderate canal narrowing. C7-T1: Disc osteophyte asymmetric to the left with moderate left and mild right neuroforaminal narrow ing. IMPRESSION: Multilevel discogenic degenerative change. Canal narrowing or neuroforaminal narrowing is seen severa l levels. Please see above level by level description. Signer Name: Acosta Winkler MD Signed: 05/15/2021 12:35 PM Workstation Name: [id number]
== END 2021-05-15 10:37 | disposition home or self-care (01) ==
LOC: MRI 10:36
PROVIDERS: ATTEND Orthopaedic Surgery
DX: M47.812 Spondylosis without myelopathy or radiculopathy, cervical region (principal); M48.03 Spinal stenosis, cervicothoracic region; M50.323 Other cervical disc degeneration at C6-C7 level; M25.78 Osteophyte, vertebrae; M50.322 Other cervical disc degeneration at C5-C6 level; M50.321 Other cervical disc degeneration at C4-C5 level
CPT/HCPCS: 72141

== ENCOUNTER 2021-06-19 12:29 | Outpatient (CLI) | payer MEDICAID ==
--- NOTE | 2021-06-20 09:40 | Mammography Report ---
DIGITAL SCREENING MAMMOGRAM WITH CAD, 06/19/2021 CLINICAL INFORMATION / INDICATION: Routine screening mammography. Z12.31 TECHNIQUE: Digital bilateral 2D mammography was obtained in the craniocaudal and mediolateral obliqu e projections. This examination was interpreted with the benefit of Computer-Aided Detection analysis . COMPARISON: 01/20/2012 through 05/08/2020. FINDINGS: Breast Density: The breasts are heterogeneously dense, which may obscure small masses. No dominant mass, suspicious calcifications, or architectural distortion in either breast. Asymmetric breast tissue in the right upper outer quadrant is stable. IMPRESSION: No mammographic evidence of malignancy. Follow up recommendation: Routine yearly BI-RADS Category 2: BENIGN. A "normal" or negative report should not discourage follow up or biopsy of a clinically significant f inding. A written summary of these findings will be mailed to the patient. The patient will be entered into a mammography reporting system which will generate a reminder letter for the patient's next appointmen t at the appropriate interval. The [employer] recommends yearly mammograms starting at age 40 and continuing as l darlene as a woman is in good health. Breast MRI is recommended for women with an approximate 20-25% or greater lifetime risk of breast cancer, including women with a strong family history of breast or ova zoey cancer or who have been treated for Hodgkin's disease. Signer Name: Gallito Cormier MD Signed: 06/20/2021 9:35 AM Workstation Name: [id number]
== END 2021-06-19 12:30 | disposition home or self-care (01) ==
LOC: MAMMO 12:29
PROVIDERS: ATTEND Internal Medicine
DX: Z12.31 Encounter for screening mammogram for malignant neoplasm of breast (principal); N64.89 Other specified disorders of breast
CPT/HCPCS: 77067

== ENCOUNTER 2021-09-11 11:54 | Emergency (ER) | payer MEDICAID ==
[2021-09-11] MEDS ORDERED: levETIRAcetam 1000 MG/NS 0.75% 1,000 MG/100 ML BAG IV ONE (12:32)
[2021-09-11] MEDS ORDERED: SODIUM CHLORIDE 0.9% 1000 ML 1,000 ML IV ONE (12:32)
--- NOTE | 2021-09-11 12:37 | Emergency Department Report ---
HPI - General Chief Complaint: Seizure Time Seen by Provider: 09/11/21 12:22 - HPI HPI: This is a 66-year-old -[place] female who presents to the emergency department via EMS from home with a complaint of multiple seizures prior to presentation. She has a past medical history of hypertension, diabetes, previous CVA with residual right-sided weakness, seizures, peripheral arterial disease, chronic right-sided extremity pain. The patient is currently a poor historian. Her marketing operations manager is at bedside and her is on the phone. The patient was witnessed having some seizures this morning that includes staring off unresponsive, slowly turning her head towards the right, and some shaking of the upper extremities. At the time of my examination the patient is awake and cooperative, but does display some mild confusion or possibly a postictal state. ED Past Medical Hx - Past Medical History Previous Medical History?: Yes Hx Hypertension: Yes Hx CVA: Yes Hx Congestive Heart Failure: No Hx Diabetes: Yes Hx Deep Vein Thrombosis: No Hx Pulmonary Embolism: No Hx GERD: No Hx Liver Disease: No Hx Renal Disease: No Hx Sickle Cell Disease: No Hx Arthritis: No Hx Headaches / Migraines: No Hx Seizures: Yes Hx Kidney Stones: No Hx Psychiatric Treatment: No Hx Asthma: No Hx COPD: No Hx Tuberculosis: No Hx Dementia: No - Surgical History Hx Pacemaker: No - Social History Smoking Status: Unknown if ever smoked - Medications Home Medications: Home Medications Medication Instructions Recorded Confirmed Last Taken Type AtorvaSTATin [Lipitor] 80 mg PO QHS #30 tablet 03/17/18 02/04/21 02/03/21 Rx metFORMIN [Glucophage] 500 mg PO BIDDIAB #30 tablet 03/17/18 02/04/21 02/03/21 Rx Acetaminophen/Codeine [Tylenol 1 tab PO TID PRN 02/10/19 02/04/21 1 Week Ago History /Codeine # 3 tab] ~01/28/21 Aspirin [Aspirin BABY CHEW TAB] 81 mg PO QDAY 02/10/19 02/04/21 02/03/21 History Losartan [Cozaar] 50 mg PO QDAY 02/10/19 02/04/21 02/03/21 History levETIRAcetam [Keppra TAB] 750 mg PO BID #90 tablet 08/06/20 02/04/21 02/03/21 Rx HYDROcodone/APAP 5-325 [[place] 1 each PO Q6HR PRN #15 tablet 02/06/21 Unknown Rx 5/325] ED Review of Systems ROS: Stated complaint: SEIZURE Other details as noted in HPI Comment: Unobtainable due to pts medical conditions Physical Exam - Physical Exam Vital Signs: Vital Signs 09/11/21 11:55 Pulse Rate 87 Respiratory 16 Rate Blood Pressure 138/82 [Left] O2 Sat by Pulse 94 Oximetry Physical Exam: GENERAL: The patient is well-developed well-nourished. HENT: Normocephalic. Atraumatic. Patient has moist mucous membranes. EYES: Pupils equal reactive to light bilaterally. NECK: Supple. Trachea is midline. CHEST/LUNGS: Clear to auscultation. There is no respiratory distress noted. HEART/CARDIOVASCULAR: Regular. There is no tachycardia. There is no murmur. ABDOMEN: Abdomen is soft, nontender. Patient has normal bowel sounds. There is no abdominal distention. SKIN: Skin is warm and dry. NEURO: The patient is awake, alert, and follows some commands. She tries to be cooperative but was unable to complete some tasks. Residual right-sided weakness. MUSCULOSKELETAL: There is no tenderness or deformity. ED Course Vital Signs 09/11/21 11:55 Pulse Rate 87 Respiratory 16 Rate Blood Pressure 138/82 [Left] O2 Sat by Pulse 94 Oximetry ED Medical Decision Making - Lab Data Result diagrams: 09/11/21 12:57 09/11/21 12:57 Lab Results 09/11/21 09/11/21 09/11/21 Range/Units 12:57 12:57 12:57 WBC 12.0 H (4.5-11.0) K/mm3 RBC 4.54 (3.65-5.03) M/mm3 Hgb 13.4 (10.1-14.3) gm/dl Hct 41.8 (30.3-42.9) % MCV 92 (79-97) fl MCH 30 (28-32) pg MCHC 32 (30-34) % RDW 14.4 (13.2-15.2) % Plt Count 300 (140-440) K/mm3 Lymph % (Auto) 6.8 L (13.4-35.0) % [place] % (Auto) 3.0 (0.0-7.3) % Eos % (Auto) 0.0 (0.0-4.3) % Baso % (Auto) 0.5 (0.0-1.8) % Lymph # (Auto) 0.8 L (1.2-5.4) K/mm3 [place] # (Auto) 0.4 (0.0-0.8) K/mm3 Eos # (Auto) 0.0 (0.0-0.4) K/mm3 Baso # (Auto) 0.1 (0.0-0.1) K/mm3 Seg Neutrophils % 89.7 H (40.0-70.0) % Seg Neutrophils # 10.8 H (1.8-7.7) K/mm3 Sodium 141 (137-145) mmol/L Potassium 3.8 (3.6-5.0) mmol/L Chloride 102.5 (98-107) mmol/L Carbon Dioxide 24 (22-30) mmol/L Anion Gap 18 mmol/L BUN 19 H (7-17) mg/dL Creatinine 0.8 (0.6-1.2) mg/dL Estimated GFR > 60 ml/min BUN/Creatinine Ratio 24 % Glucose 190 H (65-100) mg/dL Calcium 10.1 (8.4-10.2) mg/dL Total Bilirubin < 0.20 (0.1-1.2) mg/dL AST 33 (5-40) units/L ALT 30 (7-56) units/L Alkaline Phosphatase 84 (35-129) units/L Ammonia (25-60) umol/L Total Creatine Kinase 133 (30-135) units/L Troponin T < 0.010 (0.00-0.029) ng/mL Total Protein 7.3 (6.3-8.2) g/dL Albumin 5.0 (3.9-5) g/dL Albumin/Globulin Ratio 2.2 % Urine Color (Yellow) Urine Turbidity (Clear) Urine pH (5.0-7.0) Ur Specific [place] (1.003-1.030) Urine Protein (Negative) mg/dL Urine Glucose (UA) (Negative) mg/dL Urine Ketones (Negative) mg/dL Urine Blood (Negative) Urine Nitrite (Negative) Ur Reducing Substances Urine Bilirubin (Negative) Urine Ictotest Urine Urobilinogen (<2.0) mg/dL Ur Leukocyte Esterase (Negative) Urine WBC (Auto) (0.0-6.0) /HPF Urine RBC (Auto) (0.0-6.0) /HPF U Epithel Cells (Auto) (0-13.0) /HPF Urine Mucus /HPF Urine Opiates Screen Urine Methadone Screen Ur Barbiturates Screen Ur Phencyclidine Scrn Ur Amphetamines Screen U Benzodiazepines Scrn Urine Cocaine Screen U Marijuana (THC) Screen Drugs of Abuse Note Plasma/Serum Alcohol < 0.01 (0-0.07) % 09/11/21 09/11/21 09/11/21 Range/Units 12:57 Unknown Unknown WBC (4.5-11.0) K/mm3 RBC (3.65-5.03) M/mm3 Hgb (10.1-14.3) gm/dl Hct (30.3-42.9) % MCV (79-97) fl MCH (28-32) pg MCHC (30-34) % RDW (13.2-15.2) % Plt Count (140-440) K/mm3 Lymph % (Auto) (13.4-35.0) % [place] % (Auto) (0.0-7.3) % Eos % (Auto) (0.0-4.3) % Baso % (Auto) (0.0-1.8) % Lymph # (Auto) (1.2-5.4) K/mm3 [place] # (Auto) (0.0-0.8) K/mm3 Eos # (Auto) (0.0-0.4) K/mm3 Baso # (Auto) (0.0-0.1) K/mm3 Seg Neutrophils % (40.0-70.0) % Seg Neutrophils # (1.8-7.7) K/mm3 Sodium (137-145) mmol/L Potassium (3.6-5.0) mmol/L Chloride (98-107) mmol/L Carbon Dioxide (22-30) mmol/L Anion Gap mmol/L BUN (7-17) mg/dL Creatinine (0.6-1.2) mg/dL Estimated GFR ml/min BUN/Creatinine Ratio % Glucose (65-100) mg/dL Calcium (8.4-10.2) mg/dL Total Bilirubin (0.1-1.2) mg/dL AST (5-40) units/L ALT (7-56) units/L Alkaline Phosphatase (35-129) units/L Ammonia 14.0 L (25-60) umol/L Total Creatine Kinase (30-135) units/L Troponin T (0.00-0.029) ng/mL Total Protein (6.3-8.2) g/dL Albumin (3.9-5) g/dL Albumin/Globulin Ratio % Urine Color Yellow (Yellow) Urine Turbidity Clear (Clear) Urine pH 5.0 (5.0-7.0) Ur Specific [place] 1.020 (1.003-1.030) Urine Protein 100 mg/dl (Negative) mg/dL Urine Glucose (UA) 50 (Negative) mg/dL Urine Ketones Negative (Negative) mg/dL Urine Blood 1+ (Negative) Urine Nitrite Negative (Negative) Ur Reducing Substances Not Reportable Urine Bilirubin Negative (Negative) Urine Ictotest Not Reportable Urine Urobilinogen 0.0 (<2.0) mg/dL Ur Leukocyte Esterase Negative (Negative) Urine WBC (Auto) 1.0 (0.0-6.0) /HPF Urine RBC (Auto) 13.0 (0.0-6.0) /HPF U Epithel Cells (Auto) 11.0 (0-13.0) /HPF Urine Mucus Few /HPF Urine Opiates Screen Negative Urine Methadone Screen Negative Ur Barbiturates Screen Negative Ur Phencyclidine Scrn Negative Ur Amphetamines Screen Negative U Benzodiazepines Scrn Negative Urine Cocaine Screen Negative U Marijuana (THC) Screen Positive Drugs of Abuse Note Disclamer Plasma/Serum Alcohol (0-0.07) % - Radiology Data Radiology results: report reviewed CT head/brain wo con INDICATION / CLINICAL INFORMATION: 66 years Female; recurrent seizures, AMS. TECHNIQUE: Routine CT head without contrast. All CT scans at this location are performed using CT dose reduction for ALARA by means of automated exposure control. Motion artifact COMPARISON: 07/30/2020 FINDINGS: BRAIN / INTRACRANIAL CONTENTS: Old, moderately sized branch MCA infarct seen o n the left frontoparietal region, which is also seen on prior exam. Small lacunar infarct is seen in the head of the right caudate, which is suggested on prior study. Otherwise, no acute hemorrhage, mass effect, midline shift, hydrocephalus, or acute, large territorial infarct. Mild, diffuse cerebral atrophy. There are areas of decreased attenuation in the white matter of the cerebral hemispheres. These are nonspecific findings and may be related to microangiopathy (hypertension, diabetes, atherosclerosis), given the patient's age. It might be difficult to evaluate for small areas of ischemia without diffusion imaging by MRI. CRANIOCERVICAL JUNCTION: No significant abnormality. ORBITS: No significant abnormality of visualized orbits. SINUSES / MASTOIDS: Visualized paranasal sinuses and mastoid air cells are essentially clear. ADDITIONAL FINDINGS: Atherosclerotic disease is seen in the anterior circulation. IMPRESSION: 1. No focal mass, hemorrhage, hydrocephalus, or acute, large territorial infarct. Follow-up with diffusion imaging by MRI, as clinically warranted. - Medical Decision Making This patient presented to the emergency department after she had some seizure- like activity prior to presentation as witnessed by her and marketing operations manager. The patient does have a known seizure disorder after her CVA. The patient is at her baseline in terms of any sensory or motor deficits, but the marketing operations manager feels like she has some decreased responsiveness, and therefore may be postictal. CT scan of the head without contrast does not show any hemorrhage, large vessel occlusion, or any other acute process. Labs have been mostly unremarkable including CBC, metabolic panel, urinalysis, normal thyroid function, negative troponin. Vital signs of been reassuring throughout her ED course including being afebrile. Patient received IV fluid resuscitation and a loading dose of Keppra. She has been reevaluated multiple times over more than 5 hours and there has been no further seizure-like activity and the patient has clinically improved. She is a wake, alert, cooperative and is at her baseline mentation. I attempted to contact her neurologist to facilitate close outpatient follow-up, but I do not feel that the patient requires a medical admission at this time for the prearrival seizures in this patient with a seizure disorder history. She will be discharged home to follow-up with her neurologist, but I have also been asked to give it a referral for a local neurologist. She will return to the emergency department with any worsening of her symptoms or with any acute distress. Critical Care Time: No Critical care attestation.: If time is entered above; I have spent that time in minutes in the direct care of this critically ill patient, excluding procedure time. ED Disposition Clinical Impression: Seizures, History of CVA (cerebrovascular accident) Disposition: HOME / SELF CARE / HOMELESS Is pt being admited?: No Condition: Stable Instructions: Seizure, Adult Additional Instructions: Please follow-up with your neurologist in the next few days. As requested, I am giving you a referral for a local neurologist, Dr. Vieira who is located just down the street from this emergency department. Please continue taking your seizure medications and all previously prescribed medications. Please try to avoid any illicit drug use, excessive caffeine use, and try to get 8 hours of uninterrupted sleep at night. Return to the emergency department with any worsening of your symptoms or with any acute distress. Referrals: CHERELLE VIEIRA MD [Referring] - 2-3 Days Time of Disposition: 16:46
[2021-09-11 13:51] LABS: Alanine Aminotransferase 30 units/L (7-56); BUN/Creatinine Ratio 24; Blood Urea Nitrogen 19 mg/dL (7-17); Calcium 10.1 mg/dL (8.4-10.2); Hemolysis Index 5
[2021-09-11 14:29] LABS: Basophils # (Auto) 0.1 K/mm3 (0.0-0.1); Basophils % (Auto) 0.5 % (0.0-1.8); Hematocrit 41.8 % (30.3-42.9); Hemoglobin 13.4 gm/dl (10.1-14.3); Lymphocytes # (Auto) 0.8 K/mm3 (1.2-5.4); Lymphocytes % (Auto) 6.8 % (13.4-35.0); Mean Corpuscular HGB Conc 32 % (30-34); Mean Corpuscular Volume 92 fl (79-97); Monocytes # (Auto) 0.4 K/mm3 (0.0-0.8); Platelet Count 300 K/mm3 (140-440); Red Blood Count 4.54 M/mm3 (3.65-5.03); Red Cell Distribution Width 14.4 % (13.2-15.2)
--- NOTE | 2021-09-11 14:41 | Cat Scan Report ---
CT head/brain wo con INDICATION / CLINICAL INFORMATION: 66 years Female; recurrent seizures, AMS. TECHNIQUE: Routine CT head without contrast. All CT scans at this location are performed using CT dos e reduction for ALARA by means of automated exposure control. Motion artifact COMPARISON: 07/30/2020 FINDINGS: BRAIN / INTRACRANIAL CONTENTS: Old, moderately sized branch MCA infarct seen on the left frontopariet al region, which is also seen on prior exam. Small lacunar infarct is seen in the head of the right caudate, which is suggested on prior study. Otherwise, no acute hemorrhage, mass effect, midline shift, hydrocephalus, or acute, large territoria l infarct. Mild, diffuse cerebral atrophy. There are areas of decreased attenuation in the white matter of the cerebral hemispheres. These are n onspecific findings and may be related to microangiopathy (hypertension, diabetes, atherosclerosis), given the patient's age. It might be difficult to evaluate for small areas of ischemia without diffus ion imaging by MRI. CRANIOCERVICAL JUNCTION: No significant abnormality. ORBITS: No significant abnormality of visualized orbits. SINUSES / MASTOIDS: Visualized paranasal sinuses and mastoid air cells are essentially clear. ADDITIONAL FINDINGS: Atherosclerotic disease is seen in the anterior circulation. IMPRESSION: 1. No focal mass, hemorrhage, hydrocephalus, or acute, large territorial infarct. Follow-up with diff usion imaging by MRI, as clinically warranted. Signer Name: Kevin Cooper MD, III Signed: 09/11/2021 2:36 PM Workstation Name: [id number]
[2021-09-11 16:14] LABS: Amphetamine Screen,Urine Negative; Benzodiazepines Screen,Urine Negative; Cocaine Screen,Urine Negative; Methadone Screen,Urine Negative; Opiate Screen,Urine Negative
[2021-09-11 16:27] LABS: Cannabinoid Screen,Urine Positive
[2021-09-11 16:28] LABS: Mucus,Urine FEW /HPF
[2021-09-11 16:40] LABS: Bilirubin,Urine Negative (Negative); Color,Urine Yellow (Yellow)
[2021-09-11 16:41] LABS: Blood,Urine 1+ (Negative)
[2021-09-11 17:36] VITALS: BP 138/79
== END 2021-09-11 17:47 | disposition home or self-care (01) ==
LOC: ED 11:54
DX: R56.9 Unspecified convulsions (principal); Z86.73 Personal history of transient ischemic attack (TIA), and cerebral infarction without residual deficits; I10 Essential (primary) hypertension; E11.9 Type 2 diabetes mellitus without complications
CPT/HCPCS: 36415; 70450; 80053; 80307; 81001; 82140; 82550; 84484; 85025; 96361; 96374; 99284; J1953; J7030; 80320; G0480

== ENCOUNTER 2021-10-23 11:56 | Outpatient (CLI) | payer MEDICAID ==
[2021-10-23 12:32] LABS: Basophils # (Auto) 0.1 K/mm3 (0.0-0.1); Basophils % (Auto) 1.2 % (0.0-1.8); Eosinophils # (Auto) 0.1 K/mm3 (0.0-0.4); Eosinophils % (Auto) 0.9 % (0.0-4.3); Hematocrit 44.1 % (30.3-42.9); Hemoglobin 14.5 gm/dl (10.1-14.3); Lymphocytes # (Auto) 2.3 K/mm3 (1.2-5.4); Lymphocytes % (Auto) 31.6 % (13.4-35.0); Mean Corpuscular HGB Conc 33 % (30-34); Mean Corpuscular Volume 91 fl (79-97); Monocytes # (Auto) 0.4 K/mm3 (0.0-0.8); Monocytes % (Auto) 6.1 % (0.0-7.3); Platelet Count 320 K/mm3 (140-440); Red Blood Count 4.84 M/mm3 (3.65-5.03); Red Cell Distribution Width 14.1 % (13.2-15.2)
[2021-10-23 12:53] LABS: Alanine Aminotransferase 14 units/L (7-56); Albumin 4.9 g/dL (3.9-5); Blood Urea Nitrogen 13 mg/dL (7-17); Calcium 10.7 mg/dL (8.4-10.2); Hemolysis Index 2
[2021-10-23 13:01] LABS: BUN/Creatinine Ratio 19
[2021-10-23 13:02] LABS: Bacteria,Urine 1+ /HPF (Negative); Mucus,Urine FEW /HPF
[2021-10-23 13:20] LABS: Bilirubin,Urine Negative (Negative); Blood,Urine 1+ (Negative); Color,Urine Straw (Yellow)
[2021-10-23 13:21] LABS: Protein,Urine <15 mg/dL mg/dL (Negative)
== END 2021-10-23 11:57 | disposition home or self-care (01) ==
LOC: LABHHL 11:56
PROVIDERS: ATTEND Internal Medicine
DX: E11.9 Type 2 diabetes mellitus without complications (principal); R53.83 Other fatigue; N39.0 Urinary tract infection, site not specified; L97.509 Non-pressure chronic ulcer of other part of unspecified foot with unspecified severity
CPT/HCPCS: 36415; 80053; 81001; 83036; 85025

== ENCOUNTER 2021-10-24 14:20 | Emergency (ER) | payer MEDICAID ==
[2021-10-24 14:40] VITALS: BP 146/89
== END 2021-10-25 04:12 | disposition left against medical advice (07) ==
LOC: ED 14:20
DX: M79.603 Pain in arm, unspecified (principal); Z53.21 Procedure and treatment not carried out due to patient leaving prior to being seen by health care provider